=== PATIENT | male | born 1940 | race Caucasian/White ===

== ENCOUNTER 2017-03-05 10:13 | Emergency (ER) | payer MEDICARE, BC ==
--- NOTE | 2017-03-05 10:27 | Emergency Department Record ---
History of Present Illness - General Chief complaint: Bite Insect/other Stated complaint: BUG BITES Time Seen by Provider: 03/05/17 10:24 Source: Patient Mode of Arrival: Ambulatory Limitations: No limitations - History of Present Illness Initial comments: 76 yo female presents to ED with a CC of "bug bites" to the inner thighs bilaterally and right inguinal region. Patient reports redness, swelling, itching, and pain symptoms that began yesterday. Patient denies fevers, chills , nausea, or vomiting symptoms. Patient reports a history of DM. MD complaint: Insect bite/sting Onset/Timin -: Days(s) Location: LLE, RLE Severity: Mild Severity scale (1-10): 2 Consistency: Intermittent Improves with: None Worsens with: None Context: None Associated symptoms: Denies other symptoms Treatments Prior to Arrival: OTC topical medication - Related Data Home Medications Medication Instructions Recorded Confirmed Last Taken Atenolol 100 mg PO DAILY 03/05/17 03/05/17 Unknown Atorvastatin Calcium 40 mg PO DAILY 03/05/17 03/05/17 Unknown Gabapentin [Neurontin] 100 mg PO DAILY 03/05/17 03/05/17 Unknown Hydrochlorothiazide 12.5 mg PO DAILY 03/05/17 03/05/17 Unknown Lisinopril [Zestril] 5 mg PO DAILY 03/05/17 03/05/17 Unknown Metformin HCl 500 mg PO DAILY 03/05/17 03/05/17 Unknown Propranolol HCl 10 mg PO DAILY 03/05/17 03/05/17 Unknown Previous Rx's Medication Instructions Recorded Clindamycin HCl 300 mg PO Q6H #40 capsule 03/05/17 Allergies Allergy/AdvReac Type Severity Reaction Status Date / Time No Known Drug Allergies Allergy Verified 03/05/17 10:24 Travel Screening - Travel/Exposure Within Last 30 Days Have you traveled within the last 30 days?: No Review of Systems Constitutional: Denies: Chills, Fever, Malaise, Night sweats Eyes: Denies: Eye discharge, Eye pain ENT: Denies: Congestion, Ear pain, Epistaxis Respiratory: Denies: Cough, Dyspnea Cardiovascular: Denies: Chest pain, Dyspnea on exertion Endocrine: Denies: Fatigue, Heat or cold intolerance Gastrointestinal: Denies: Constipation, Diarrhea, Nausea, Vomiting Genitourinary: Denies: Testicular pain, Testicular mass Musculoskeletal: Denies: Arthralgia, Back pain Skin: Reports: Change in color, Lesions, Pruritus. Denies: Bruising, Change in hair/nails Neurological: Denies: Confusion, Headache, Seizure Psychiatric: Denies: Anxiety Hematological/Lymphatic: Denies: Anemia, Blood Clots Past Medical History - SOCIAL HISTORY Smoking Status: Never smoker Alcohol Use: None Drug Use: None - RESPIRATORY Hx Respiratory Disorders: No - CARDIOVASCULAR Hx Cardio Disorders: No - NEURO Hx Neuro Disorders: No - GI Hx GI Disorders: No - Hx Genitourinary Disorders: No - ENDOCRINE Hx Endocrine Disorders: Yes Hx Diabetes: Yes - MUSCULOSKELETAL Hx Musculoskeletal Disorders: No - PSYCH Hx Psych Problems: No - HEMATOLOGY/ONCOLOGY Hx Hematology/Oncology Disorders: Yes Hx Cancer: Yes (blood) Family Medical History Any Significant Family History?: No Physical Exam - General General Appearance: Alert, Oriented x3, Cooperative, No acute distress, Other ( mild resting tremor to the UEs bilaterally on examination) Limitations: No limitations - Head Head exam: Atraumatic, Normocephalic, Normal inspection Head exam detail: negative: Abrasion, Contusion, Valdes's sign, General tenderness, Hematoma, Laceration - Eye Eye exam: Normal appearance. negative: Conjunctival injection, Periorbital swelling, Periorbital tenderness - ENT Ear exam: negative: Auricular hematoma, Auricular trauma Nasal Exam: negative: Active bleeding, Discharge, Dried blood, Foreign body Mouth exam: negative: Drooling, Laceration, Muffled voice, Tongue elevation - Neck Neck exam: Normal inspection. negative: Meningismus, Tenderness - Respiratory Respiratory exam: Normal lung sounds bilaterally. negative: Respiratory distress, Rhonchi, Stridor, Wheezes - Cardiovascular Cardiovascular Exam: Regular rate, Normal rhythm, Normal heart sounds - GI/Abdominal GI/Abdominal exam: Soft. negative: Rebound, Rigid, Tenderness - Rectal Rectal exam: Deferred - exam: Deferred - Extremities Extremities exam: Tenderness, Other (Area of erythema induration to the right medial thigh measuring approximately 4 cm in diameter with harm reduction worker surrounding erythema present, no fluctuance present. Smaller area of erythema without induration or fluctuance is present to the right medial thigh.). negative: Calf tenderness, Pedal edema - Back Back exam: Denies: CVA tenderness (R), CVA tenderness (L) - Neurological Neurological exam: Alert, Normal gait, Oriented X3 - Psychiatric Psychiatric exam: Normal affect, Normal mood - Skin Skin exam: Erythema. negative: Abrasion Type of lesion: Other Course Vital Signs 03/05/17 10:17 Temperature 98.6 F Pulse Rate 53 L Respiratory 18 Rate Blood Pressure 127/69 Pulse Ox 96 - Reevaluation(s) Reevaluation #1: 03/05/17 10:31 No clinical evidence for abscess to the medial thigh on examination, and symptoms are c/w cellulitis. Will treat with Clindamycin with instructions for follow-up with Dr. Randall in 3-5 days as directed. Patient and family were counseled to perform warm soaks twice daily and to return for any worsening of the patient's symptoms including; fever, chills, nausea, vomiting, or worsening redness. Patietn and family verbalize understanding of all instructions and appear stable for discharge at this time. Disposition Disposition: Discharge Clinical Impression: Cellulitis of right thigh Disposition: Home, Self-Care Condition: (2) Stable Instructions: Cellulitis (ED) Additional Instructions: Return to ED if your symptoms worsen or if you have any concerns. Clindamycin as directed. Follow-up with your family doctor in 1-3 days as directed. Prescriptions: Clindamycin HCl 300 mg PO Q6H #40 capsule Forms: Patient Portal Access Time of Disposition: 10:27
== END 2017-03-05 10:33 | disposition home or self-care (01) ==
LOC: ER 10:13
DX: L03.115 Cellulitis of right lower limb (principal)
CPT/HCPCS: 99282

== ENCOUNTER 2017-06-15 21:07 | Emergency (ER) | payer MEDICARE, BC ==
--- NOTE | 2017-06-15 21:43 | Emergency Department Record ---
History of Present Illness - General Chief complaint: Edema Stated complaint: RIGHT THUMB INJURY Time Seen by Provider: 06/15/17 21:37 Source: Patient Mode of Arrival: Ambulatory Limitations: No limitations - History of Present Illness Initial comments: 76 yo male presents to ED for symptoms of worsening redness and swelling of the right forearm/thumb. Patient reports that several days ago he was working outdoors when he scratched his forearm on a fence. This morning, patient reported seeing a "blister" to the back of the thumb. Patient was seen by his PCP and started on Keflex this morning, reports that his swelling has become progressively worse since that time including large "blood blisters" to the thumb. Patient denies fevers, chills, or recent illness. Patient also denies anticoagulation use at home. MD Complaint: Extremity swelling Onset/Timin -: Days(s) Location: Right History of Same: No Radiation: Proximal Consistency: Constant Improves with: Nothing Worsens with: Nothing Associated Symptoms: Denies other symptoms - Related Data Allergies Allergy/AdvReac Type Severity Reaction Status Date / Time No Known Drug Allergies Allergy Verified 03/05/17 10:24 Travel Screening - Travel/Exposure Within Last 30 Days Have you traveled within the last 30 days?: No - Travel Symptoms Symptom Screening: None Review of Systems Constitutional: Denies: Chills, Fever, Malaise, Night sweats Eyes: Denies: Eye discharge, Eye pain ENT: Denies: Congestion, Ear pain, Epistaxis Respiratory: Denies: Cough, Dyspnea Cardiovascular: Denies: Chest pain, Dyspnea on exertion Endocrine: Denies: Fatigue, Heat or cold intolerance Gastrointestinal: Denies: Abdominal pain, Nausea, Vomiting Musculoskeletal: Denies: Arthralgia, Back pain, Gout, Joint swelling Skin: Reports: Change in color, Other (blsiters over the dorsum of the thumb). Denies: Bruising, Change in hair/nails Neurological: Denies: Abnormal gait, Confusion, Headache, Seizure Psychiatric: Denies: Anxiety Hematological/Lymphatic: Denies: Anemia, Blood Clots Past Medical History - SOCIAL HISTORY Smoking Status: Never smoker Alcohol Use: None Drug Use: None - RESPIRATORY Hx Respiratory Disorders: No - CARDIOVASCULAR Hx Cardio Disorders: No Hx Hypertension: Yes Comment:: high cholesterol - NEURO Hx Neuro Disorders: No - GI Hx GI Disorders: No - Hx Genitourinary Disorders: No - ENDOCRINE Hx Endocrine Disorders: Yes Hx Diabetes: Yes - MUSCULOSKELETAL Hx Musculoskeletal Disorders: No - PSYCH Hx Psych Problems: No - HEMATOLOGY/ONCOLOGY Hx Hematology/Oncology Disorders: Yes Hx Cancer: Yes (blood) Family Medical History Any Significant Family History?: No Family Hx Comment (NOT TO BE USED IN PLACE OF ITEMS BELOW): denies Physical Exam - General General Appearance: Alert, Oriented x3, Cooperative, Mild distress Limitations: No limitations - Head Head exam: Atraumatic, Normocephalic, Normal inspection Head exam detail: negative: Abrasion, Contusion, Valdes's sign, General tenderness, Hematoma, Laceration - Eye Eye exam: Normal appearance. negative: Conjunctival injection, Periorbital swelling, Periorbital tenderness, Scleral icterus - ENT Ear exam: negative: Auricular hematoma, Auricular trauma Nasal Exam: negative: Active bleeding, Discharge, Dried blood, Foreign body Mouth exam: negative: Drooling, Laceration, Muffled voice, Tongue elevation - Neck Neck exam: Normal inspection. negative: Meningismus, Tenderness - Respiratory Respiratory exam: Normal lung sounds bilaterally. negative: Rales, Respiratory distress, Rhonchi, Stridor - Cardiovascular Cardiovascular Exam: Regular rate, Normal rhythm, Normal heart sounds Peripheral Pulses: 3+: Radial (R) - GI/Abdominal GI/Abdominal exam: Soft. negative: Rebound, Rigid, Tenderness - Rectal Rectal exam: Deferred - exam: Deferred - Extremities Extremities exam: Other (Hemorrhagic blisters to the dorsum of the right thumb with erythema extending to the distal upper arm volarly c/w cellulitis/ lymphangitis. There is no crepitation present, compartments are soft on examination.). negative: Calf tenderness, Pedal edema, Tenderness - Back Back exam: Denies: CVA tenderness (R), CVA tenderness (L) - Neurological Neurological exam: Alert, Normal gait, Oriented X3 - Psychiatric Psychiatric exam: Normal affect, Normal mood - Skin Skin exam: Erythema Distribution of rash: RUE Course Vital Signs 06/15/17 21:21 Temperature 98.2 F Pulse Rate [ 66 Pulse Ox Probe] Respiratory 20 Rate Blood Pressure 126/49 [Left Arm] Pulse Ox 97 - Reevaluation(s) Reevaluation #1: 06/15/17 22:13 Labs reviewed, WBC 425K (baseline 385K), Hgb 10.8/HCT 36.1, Platelets 120. CRP 0.6. Labs are otherwise grossly unremarkable for an acute process. Reevaluation #2: 06/15/17 22:48 Right forearm/Hand: STS of the forearm extending to the hand, severe STS base thumb, ?1.7 mm linear FB overlying the base of the distal phalanx. No soft- tissue gas noted on examination. Clindamycin has completed infusing. Patient initially requested transfer to [facility], spoke with admitting [facility] and hand surgery [facility] awaiting return page from Hand [facility] for consultation. 06/16/17 04:53 Reevaluation #3: 06/15/17 22:55 Case was discussed with Dr. Davidson (Hand surgery), will order Zosyn in addition to Clindamycin for gram-negative coverage. Hospitalist paged for admission. Reevaluation #4: 06/15/17 23:23 Case was discussed with Dr. Mendes, will accept patient for admission. Patient and his significant other were updated on the plan for transfer and agree with the plan as discussed. Medical Decision Making - Lab Data Result diagrams: 06/15/17 21:45 06/15/17 21:45 Disposition Disposition: Transfer Clinical Impression: CLL (chronic lymphocytic leukemia) Cellulitis Qualifiers: Site of cellulitis: extremity Site of cellulitis of extremity: upper extremity Laterality: right Qualified Code(s): L03.113 - Cellulitis of right upper limb Blister of right thumb Qualifiers: Encounter type: initial encounter Qualified Code(s): S60.321A - Blister ( nonthermal) of right thumb, initial encounter Disposition: Acute Care Hospital Transfer Transfer To: [facility] Reason For Transfer: Hand consultation, cellulitis, hemorrhagic blisters Accepting Physician: Cinthya Time Discussed w/Accepting Physician: 23:25 Condition: (2) Stable Forms: Patient Portal Access Time of Disposition: 23:25 Quality - Quality Measures Quality Measures: N/A - Blood Pressure Screening Does Patient Have Any of the Following: No Blood Pressure Classification: Pre-Hypertensive BP Reading Systolic Measurement: 135 Diastolic Measurement: 48 Screening for High Blood Pressure: < Pre-Hypertensive BP, F/U Documented > [ G8950] Pre-Hypertensive Follow-up Interventions: Referral to alternative/primary care provider.
[2017-06-15] MEDS: CLINDAMYCIN 600MG/50ML PREMIX 600 MG/50 ML BAG IVPB ONE (21:49)
[2017-06-15 21:56] LABS: HEMATOCRIT 36.1 % (42.0-52.0); HEMOGLOBIN 10.8 gm/dl (14.0-18.0); MEAN CELL VOLUME 102.6 fl (81-97); MEAN CORPUSCULAR HGB CONC 29.9 g/dl (32-36); MEAN PLATELET VOLUME 10.5 fl (7.4-10.4); PLATELET COUNT 120 K/uL (130-400); RED BLOOD COUNT 3.52 M/uL (4.40-5.70); RED CELL DISTRIBUTION WIDTH 18.4 % (11.5-14.5)
[2017-06-15 21:58] LABS: MEAN CORPUSCULAR HEMOGLOBIN 30.6 pg (27-33); WHITE BLOOD COUNT W/O DIFF 425.8 K/uL (4.2-12.2)
[2017-06-15 22:11] LABS: ALB/GLOB RATIO 1.7 (1.1-1.8); ALBUMIN 4.3 g/dL (4.0-5.0); ALKALINE PHOSPHATASE 93 U/L (40-129); ALT/SGPT 13 U/L (<41); AST/SGOT 22 U/L (10.0-50.0); BLOOD UREA NITROGEN 21 mg/dL (8-23); C-REACTIVE PROTEIN 0.6 mg/L (<5.0); CREATININE 0.9 mg/dL (0.7-1.2); EST GLOMERULAR FILTRATION RATE > 60 mL/min; GLUCOSE,RANDOM 182 mg/dL (74-109); TOTAL PROTEIN 6.9 g/dL (6.6-8.7)
[2017-06-15 22:23] LABS: ERYTHROCYTE SEDIMENTATION RATE 8 mm/hr (0-20)
[2017-06-15] MEDS: PIPERACILLIN SODIUM/TAZOBACTAM 4.5 GM in 0.9 % SODIUM CHLORIDE 100ML 100 ML IVPB ONE (23:15)
== END 2017-06-16 00:01 | disposition short-term general hospital (02) ==
LOC: ER 21:07
DX: S60.321A Blister (nonthermal) of right thumb, initial encounter (principal); L03.113 Cellulitis of right upper limb; C91.10 Chronic lymphocytic leukemia of B-cell type not having achieved remission; E11.9 Type 2 diabetes mellitus without complications; W22.8XXA Striking against or struck by other objects, initial encounter; Y93.H9 Activity, other involving exterior property and land maintenance, building and construction
CPT/HCPCS: 80053; 85027; 85651; 86140; 96365; 96366; 99284; J2543

== ENCOUNTER 2017-07-09 08:23 | Observation (INO) | payer MEDICARE, BC ==
--- NOTE | 2017-07-09 08:45 | Emergency Department Record ---
History of Present Illness - General Chief complaint: Male Urogenital Problem Time Seen by Provider: 07/09/17 08:34 Source: Patient Mode of Arrival: Ambulatory Limitations: No limitations - History of Present Illness Initial comments: The patient is here due to not feeling well for one day. He has been having dysuria and urinary urgency for one day. He also has felt mildly unsteady per his daughter. The patient denies any fever, chills, CP, SOB, cough, or back pain. He does have a hx of CLL and is in treatment for it. MD Complaint: Dysuria, Other Onset/Timin -: Days(s) Improves with: None Worsens with: None - Related Data Allergies Allergy/AdvReac Type Severity Reaction Status Date / Time No Known Drug Allergies Allergy Verified 07/09/17 08:35 Travel Screening - Travel/Exposure Within Last 30 Days Have you traveled within the last 30 days?: No Review of Systems Constitutional: Denies: Chills, Fever Eyes: Denies: Eye discharge ENT: Denies: Congestion Respiratory: Denies: Cough, Dyspnea Cardiovascular: Denies: Chest pain Endocrine: Denies: Fatigue Gastrointestinal: Denies: Abdominal pain Genitourinary: Reports: Dysuria Musculoskeletal: Denies: Arthralgia Past Medical History - SOCIAL HISTORY Smoking Status: Never smoker Alcohol Use: None Drug Use: None - RESPIRATORY Hx Respiratory Disorders: No - CARDIOVASCULAR Hx Cardio Disorders: Yes Hx Hypertension: Yes Comment:: high cholesterol - NEURO Hx Neuro Disorders: No - GI Hx GI Disorders: No - Hx Genitourinary Disorders: No - ENDOCRINE Hx Endocrine Disorders: Yes Hx Diabetes: Yes - MUSCULOSKELETAL Hx Musculoskeletal Disorders: No - PSYCH Hx Psych Problems: No - HEMATOLOGY/ONCOLOGY Hx Hematology/Oncology Disorders: Yes Hx Cancer: Yes (blood leukemia) Family Medical History Any Significant Family History?: No Family Hx Comment (NOT TO BE USED IN PLACE OF ITEMS BELOW): denies Physical Exam - General General Appearance: Alert, Oriented x3, Cooperative, No acute distress - Head Head exam: Atraumatic, Normocephalic, Normal inspection - Eye Eye exam: Normal appearance, PERRL - ENT Throat exam: Normal inspection. negative: Tonsillar erythema, Tonsillar exudate - Neck Neck exam: Normal inspection, Full ROM. negative: Tenderness - Respiratory Respiratory exam: Normal lung sounds bilaterally. negative: Respiratory distress - Cardiovascular Cardiovascular Exam: Regular rate, Normal rhythm, Normal heart sounds - GI/Abdominal GI/Abdominal exam: Soft, Normal bowel sounds. negative: Rebound, Rigid, Tenderness - Extremities Extremities exam: Normal inspection, Full ROM, Normal capillary refill. negative: Tenderness - Neurological Neurological exam: Alert. negative: Motor sensory deficit - Psychiatric Psychiatric exam: negative: Anxious Course Vital Signs 07/09/17 07/09/17 08:30 08:40 Temperature 99.5 F Pulse Rate 80 Respiratory 18 Rate Blood Pressure 127/45 Pulse Ox 92 L 90 L - Reevaluation(s) Reevaluation #1: The patient is doing very well at this time. He denies any CP, SOB, or JESSE. 07/09/17 10:00 Reevaluation #2: The patient is doing well at this time. He is resting comfortably and denies any pain or discomfort. I did explain to him that it appears he has a UTI along with mild CHF. We will start some IV Abx and diuretics and will admit the patient to the hospital. I did talk with Dr. Randall and he does accept the patient to the hospital. 07/09/17 11:39 Medical Decision Making - Data Complexity MDM Data: Labs Ordered and/or Reviewed, X-Ray Ordered and/or Reviewed, EKG Ordered and/or Reviewed - Lab Data Result diagrams: 07/09/17 08:51 07/09/17 08:51 - EKG Data -: EKG Interpreted by Me EKG: No Acute Changes, Normal EKG - Radiology Data Radiology results: Report reviewed (CXR: increased interstial markings.) Disposition Disposition: Admit Clinical Impression: Cystitis CHF (congestive heart failure) Qualifiers: Congestive heart failure type: unspecified congestive heart failure type Congestive heart failure chronicity: unspecified congestive heart failure chronicity Qualified Code(s): I50.9 - Heart failure, unspecified Disposition: Still a Patient at [facility] Decision to Admit: Admit from ER Decision to Admit Date: 07/09/17 Decision to Admit Time: 11:41 Accepting Physician: Tonia Time Discussed w/Accepting Physician: 11:41 Condition: (2) Stable Time of Disposition: 11:41 Quality - Quality Measures Quality Measures: N/A - Blood Pressure Screening View Details: Yes Does Patient Have Any of the Following: No Blood Pressure Classification: Pre-Hypertensive BP Reading Systolic Measurement: 127 Diastolic Measurement: 45 Screening for High Blood Pressure: < Pre-Hypertensive BP, F/U Documented > [ G8950] Pre-Hypertensive Follow-up Interventions: Referral to alternative/primary care provider.
[2017-07-09] MEDS ORDERED: 0.9 % SODIUM CHLORIDE 1,000 ML BAG IV ONE (08:49)
[2017-07-09 08:58] LABS: HEMATOCRIT 33.7 % (42.0-52.0); HEMOGLOBIN 9.4 gm/dl (14.0-18.0); MEAN CORPUSCULAR HGB CONC 27.9 g/dl (32-36); MEAN PLATELET VOLUME 10.7 fl (7.4-10.4); PLATELET COUNT 102 K/uL (130-400); RED BLOOD COUNT 3.24 M/uL (4.40-5.70); RED CELL DISTRIBUTION WIDTH 19.3 % (11.5-14.5)
[2017-07-09 09:11] LABS: WHITE BLOOD COUNT W/O DIFF 414.6 K/uL (4.2-12.2)
[2017-07-09 09:18] LABS: BLOOD UREA NITROGEN 27 mg/dL (8-23); CKMB 1.7 ng/mL (<6.73); CREATINE PHOSPHOKINASE 169 U/L (39-308); CREATININE 1.1 mg/dL (0.7-1.2); EST GLOMERULAR FILTRATION RATE > 60 mL/min; GLUCOSE,RANDOM 163 mg/dL (74-109)
--- NOTE | 2017-07-09 09:57 | RADIOLOGY REPORT ---
EXAM: CHEST, TWO VIEWS HISTORY: CHEST PAIN. TECHNIQUE: Frontal and lateral views of the chest were obtained. Comparison: CT chest from 05/28/16. FINDINGS: The heart size is normal. Atheromatous change thoracic aorta. Osteopenia. Mixed interstitial and air space opacities bilaterally. Findings could reflect pulmonary edema versus pneumonitis. There are small bilateral pleural effusions. No pneumothorax. IMPRESSION: MIXED INTERSTITIAL INTERSPACE OPACITIES BILATERALLY WITH SMALL BILATERAL PLEURAL EFFUSIONS. JOB NUMBER: [id number] [facility]
[2017-07-09] MEDS ORDERED: FUROSEMIDE IV 40MG/4ML VIAL IVP ONE (10:01)
[2017-07-09 11:12] LABS: URINE APPEARANCE SL CLOUDY; URINE BILIRUBIN NEGATIVE (NEGATIVE); URINE BLOOD MODERATE (NEGATIVE); URINE COLOR YELLOW; URINE GLUCOSE (UA) NEGATIVE (NEGATIVE); URINE KETONE NEGATIVE (NEGATIVE); URINE LEUKOCYTE ESTERASE TRACE (NEGATIVE); URINE NITRITE NEGATIVE (NEGATIVE); URINE PROTEIN TRACE (NEGATIVE); URINE UROBILINOGEN 0.2 E.U./dL (0.20 - 1.00)
[2017-07-09] MEDS ORDERED: LEVOFLOXACIN 500MG IVPB 500 MG/100 ML BAG IVPB ONE (11:15)
[2017-07-09 11:20] LABS: URINE BACTERIA NONE SEEN; URINE EPITHELIAL CELLS 0 - 2 (FEW); URINE RBC 0 - 2 (NONE SEEN)
[2017-07-09] MEDS: ACETAMINOPHEN 500 MG TABLET PO PRN (15:10)
[2017-07-09 17:30] LABS: CKMB 1.2 ng/mL (<6.73)
[2017-07-10 01:23] LABS: CKMB 1.5 ng/mL (<6.73)
[2017-07-10] MEDS: ACETAMINOPHEN 500 MG TABLET PO PRN ×2 (02:11→14:36)
[2017-07-10 06:12] LABS: HEMATOCRIT 29.4 % (42.0-52.0); HEMOGLOBIN 8.2 gm/dl (14.0-18.0); MEAN CELL VOLUME 103.9 fl (81-97); MEAN CORPUSCULAR HGB CONC 27.9 g/dl (32-36); MEAN PLATELET VOLUME 11.3 fl (7.4-10.4); PLATELET COUNT 83 K/uL (130-400); RED BLOOD COUNT 2.83 M/uL (4.40-5.70); RED CELL DISTRIBUTION WIDTH 17.2 % (11.5-14.5)
[2017-07-10 06:20] LABS: CREATININE 1.8 mg/dL (0.7-1.2)
[2017-07-10 06:42] LABS: MEAN CORPUSCULAR HEMOGLOBIN 28.9 pg (27-33); WHITE BLOOD COUNT W/O DIFF 316.9 K/uL (4.2-12.2)
[2017-07-10 06:43] LABS: PLATELET ESTIMATE DECREASED (NORMAL); POIKILOCYTOSIS 1+
[2017-07-10 06:44] LABS: ANISOCYTOSIS 1+
[2017-07-10] MEDS ORDERED: METFORMIN 500 MG TABLET PO SCH (08:00)
[2017-07-10] MEDS ORDERED: GABAPENTIN 100 MG CAPSULE PO SCH (10:00)
[2017-07-10] MEDS ORDERED: ATENOLOL 50 MG TABLET PO SCH (10:00)
[2017-07-10] MEDS ORDERED: TAMSULOSIN HCL 0.4 MG CAP.ER.24H PO SCH (10:00)
[2017-07-10] MEDS ORDERED: HYDROCHLOROTHIAZIDE 12.5 MG CAPSULE PO SCH (10:00)
[2017-07-10] MEDS ORDERED: ATORVASTATIN 20 MG TABLET PO SCH (10:00)
[2017-07-10] MEDS ORDERED: FUROSEMIDE IV 40MG/4ML VIAL IVP SCH (10:00)
[2017-07-10] MEDS ORDERED: ENOXAPARIN 30 MG/0.3 ML SYR SQ SCH (10:00)
[2017-07-10] MEDS ORDERED: LEVOFLOXACIN 500 MG TABLET PO ONE (11:02)
[2017-07-10] MEDS: LISINOPRIL 5 MG TABLET PO SCH ×2 (11:09→11:23)
[2017-07-10] MEDS ORDERED: FUROSEMIDE 20 MG TABLET PO ONE (11:19)
[2017-07-10] MEDS ORDERED: LEVOFLOXACIN 500MG IVPB 500 MG/100 ML BAG IVPB SCH (11:30)
--- NOTE | 2017-07-10 11:48 | Discharge Note ---
VTE H&P Assessment - Risk for VTE Risk for VTE: Yes Risk Level: Moderate Risk Assessment Date: 07/10/17 Risk Assessment Time: 09:45 VTE Orders Placed or Will Be Placed: Yes Discharge Medications - Discharge Medications Prescriptions: Furosemide [Lasix] 20 mg PO DAILY #30 tablet Levofloxacin [Levaquin Tab] 500 mg PO DAILY #10 tab Potassium Chloride 10 meq PO DAILY #30 tablet.er Tamsulosin HCl [Flomax] 0.4 mg PO DAILY #30 cap.er.24h Home Medications: Ambulatory Orders Atenolol 100 mg PO DAILY 03/05/17 [Last Taken 07/08/17] Atorvastatin Calcium 40 mg PO DAILY 03/05/17 [Last Taken 07/08/17] Lisinopril [Zestril] 5 mg PO DAILY 03/05/17 [Last Taken 07/08/17] Metformin HCl 500 mg PO QAM 03/05/17 [Last Taken 07/08/17] Furosemide [Lasix] 20 mg PO DAILY #30 tablet 07/10/17 [Last Taken Unknown] Levofloxacin [Levaquin Tab] 500 mg PO DAILY #10 tab 07/10/17 [Last Taken Unknown ] Potassium Chloride 10 meq PO DAILY #30 tablet.er 07/10/17 [Last Taken Unknown] Tamsulosin HCl [Flomax] 0.4 mg PO DAILY #30 cap.er.24h 07/10/17 [Last Taken Unknown] Discharge Note - Date Date of Discharge Note: 07/10/17 Condition: (2) Stable Forms: Patient Portal Access
--- NOTE | 2017-07-10 11:51 | Discharge Note ---
VTE H&P Assessment - Risk for VTE Risk for VTE: Yes Risk Level: Moderate Risk Assessment Date: 07/10/17 Risk Assessment Time: 09:45 VTE Orders Placed or Will Be Placed: Yes Discharge Medications - Discharge Medications Prescriptions: Furosemide [Lasix] 20 mg PO DAILY #30 tablet Levofloxacin [Levaquin Tab] 500 mg PO DAILY #10 tab Potassium Chloride 10 meq PO DAILY #30 tablet.er Tamsulosin HCl [Flomax] 0.4 mg PO DAILY #30 cap.er.24h Home Medications: Ambulatory Orders Atenolol 100 mg PO DAILY 03/05/17 [Last Taken 07/08/17] Atorvastatin Calcium 40 mg PO DAILY 03/05/17 [Last Taken 07/08/17] Lisinopril [Zestril] 5 mg PO DAILY 03/05/17 [Last Taken 07/08/17] Metformin HCl 500 mg PO QAM 03/05/17 [Last Taken 07/08/17] Furosemide [Lasix] 20 mg PO DAILY #30 tablet 07/10/17 [Last Taken Unknown] Levofloxacin [Levaquin Tab] 500 mg PO DAILY #10 tab 07/10/17 [Last Taken Unknown ] Potassium Chloride 10 meq PO DAILY #30 tablet.er 07/10/17 [Last Taken Unknown] Tamsulosin HCl [Flomax] 0.4 mg PO DAILY #30 cap.er.24h 07/10/17 [Last Taken Unknown] Discharge Note - Date Date of Discharge Note: 07/10/17 Condition: (2) Stable Additional Instructions: follow up with Dr. Randall on Wednesday at 10 am use levaquin 500 mg once aday lasix 20 mg once a day Potassium chloride 10 meq once a day flomax 0.4 mg once a day Prescriptions: Furosemide [Lasix] 20 mg PO DAILY #30 tablet Levofloxacin [Levaquin Tab] 500 mg PO DAILY #10 tab Potassium Chloride 10 meq PO DAILY #30 tablet.er Tamsulosin HCl [Flomax] 0.4 mg PO DAILY #30 cap.er.24h Referrals: Leonard Randall D.O. [Primary Care Provider] - Forms: Patient Portal Access
--- NOTE | 2017-07-12 07:11 | History and Physical Report ---
DATE OF ADMISSION: 07/09/2017 CHIEF COMPLAINT: Frequent urination, weakness. HISTORY OF PRESENT ILLNESS: This 76-year-old male presented to the emergency department stating he was urinating frequently which started the day prior to admission. He was weak and having a hard time walking. He was evaluated in the emergency department by Dr. Marshall and admitted with a diagnosis of cystitis and congestive heart failure mild. The patient was given Lasix 40 mg Iv and diuresed nicely. He also was having some difficulty urinating. He was catheterized once in the emergency department and he had about 400 mL of urine in his bladder. The Gonzales was taken out because his history of chronic lymphocytic leukemia might be a source for infection for him, and he was given a trial of trying to urinate by himself. He was admitted to the hospital for further evaluation and care. The patient denies chest pain. He denied a fever, chills, shortness of breath. He denied back pain or cough. He does have a history of CLL and treated by Dr. Preciado. PAST MEDICAL HISTORY: Chronic lymphocytic leukemia, hypertension, diabetes mellitus, benign prostatic hyperplasia. PAST SURGICAL HISTORY: None. MEDICATIONS: 1. Metformin 500 mg once a day. 2. Lisinopril 5 mg daily. 3. Atorvastatin 40 mg daily. 4. Atenolol 100 mg daily. ALLERGIES: No known allergies. FAMILY HISTORY: No significant family history. SOCIAL HISTORY: Never smoked. No alcohol or drug use. REVIEW OF SYSTEMS: HEENT: No cough, cold, or congestion. Cardiovascular: No chest pain, palpitations, or arrhythmia. However, on his chest x-ray, it appeared to have mild congestive heart failure and pneumonitis. Respiratory: Denies a cough, cold, or congestion. Gastrointestinal: He has had diarrhea about 4-5 episodes since being admitted to the hospital in the last 24 hours but he is feeling better. Genitourinary: No dysuria, hematuria, frequency, or burning on urination. Urinating now and he has only residual of 150 mL. Musculoskeletal: He does have joint/bone problems. His energy levels are back to normal. Neurological: No CVA, paralysis, or paresthesias. Endocrine: He has diabetes mellitus. Integument: No rash, ulcers, change in moles, or yellow skin. His hand is doing much better from the cellulitis that he had. PHYSICAL EXAMINATION: VITALS: Height 5 feet 8 inches, weight 174 pounds. On admission, vital signs were temperature 99.5, pulse 80, blood pressure 127/45, respiratory rate 18, pulse ox 92% on room air. He did develop a fever throughout the day up to about 100.9. Discharge vitals 106 was his fever, pulse 76, blood pressure 105/44, respiratory rate 18, pulse ox 96% on room air. However, he is feeling better and at this point I felt he could be treated as an outpatient. HEENT: Pupils are equal, round, and reactive to light and accommodation. Extraocular muscles are intact. Throat is clear. Nose is clear. Tympanic membranes are treviño. NECK: Supple. No jugular venous distention. No hepatojugular reflux. No carotid bruits. Thyroid is smooth. CARDIOVASCULAR: Regular rate and rhythm without murmurs, clicks, rubs, or gallops. RESPIRATORY: Clear to auscultation. Scant rales at the posterior bases. ABDOMEN: Soft, nontender. No hepatosplenomegaly, no masses, no tenderness. Bowel sounds are active. No bruits. EXTREMITIES: Scant edema of the ankles. Pulses were present bilaterally. BREASTS: Normal male breasts. RECTAL: Exam deferred. GENITALIA: Deferred. NEUROLOGIC: Cranial nerves II-XII intact. No gross defects. Sensation normal, strength normal. Deep tendon reflexes equal bilaterally with Babinski negative. MENTAL STATUS: Alert and oriented x3. IMPRESSION: 1. Fever. 2. Diarrhea. 3. Mild congestive heart failure. 4. Pulmonary edema. 5. Possible pneumonia. 6. Urinary tract infection. 7. Benign prostatic hyperplasia. 8. Chronic lymphocytic leukemia, being treated by Dr. Preciado. PLAN: We gave him Lasix IV 40 mg and oral Lasix today 20 mg, potassium 10 mEq a day, Flomax was started at 0.4 mg daily, Levaquin 500 mg daily. MTDD
--- NOTE | 2017-07-12 07:11 | Discharge Summary ---
DATE OF DISCHARGE: 07/10/2017 DISCHARGE DIAGNOSES: 1. Urinary tract infection. 2. Fever. 3. Diarrhea, resolving. 4. Chronic lymphocytic leukemia. 5. Congestive heart failure, mild. 6. Pulmonary edema secondary to congestive heart failure. 7. Pneumonia. ATTENDING PHYSICIAN: Leonard Randall DO REASON FOR HOSPITALIZATION: Frequent urination and weakness. Fever. This 76-year-old male presented to the ER with frequent urinations and weakness and fever. Seen by Dr. Marshall with diagnosis of cystitis and congestive heart failure. Admitted to the hospital for further evaluation. SIGNIFICANT FINDINGS: WBC 414,000, hemoglobin 9.4. White count went down to 316,000, hemoglobin 8.2. Platelet count 83,000 on discharge. Electrolytes on discharge are sodium 138, potassium 3.4, chloride 100, BUN 44, creatinine 1.8. CK was 1.5, normal. All 3 were normal. His troponin I's were in the indeterminates x3. His brain natriuretic peptide was elevated at 7562. It came down to 6114. Urine was WBCs 6-10, no bacteria. The chest x-ray revealed mixed interspace opacities bilaterally with small bilateral pleural effusions. THERAPY PROVIDED: The patient was given IV Levaquin 500 mg, some IV Lasix 40 mg. HOSPITAL COURSE: He was feeling much better and wanted to be discharged. CONDITION ON DISCHARGE: Much improved. DISCHARGE INSTRUCTIONS: Follow up with Dr. Randall in 1 day at 10 a.m. for a reevaluation and we will schedule an outpatient echocardiogram. Continue the Levaquin 500 mg daily, Flomax 0.4 mg daily, Lasix 20 mg daily, and potassium chloride 10 mEq daily. Continue his other home medications of atenolol 100 mg daily, atorvastatin 40 mg daily, lisinopril 5 mg daily, metformin 500 mg daily. Activity as tolerated. A bladder scan was done after he urinated showing a residual of 180 mL. [facility]
== END 2017-07-10 15:02 | disposition home or self-care (01) ==
LOC: ER 08:23 → MEDSURG 12:36 → INTOOBSV 12:36
PROVIDERS: ADMIT Emergency Medicine; ATTEND Emergency Medicine
DX: N39.0 Urinary tract infection, site not specified (principal); B96.20 Unspecified Escherichia coli [E. coli] as the cause of diseases classified elsewhere; R19.7 Diarrhea, unspecified; C91.11 Chronic lymphocytic leukemia of B-cell type in remission; I50.9 Heart failure, unspecified; E11.9 Type 2 diabetes mellitus without complications; Z79.84 Long term (current) use of oral hypoglycemic drugs; N40.0 Benign prostatic hyperplasia without lower urinary tract symptoms
CPT/HCPCS: 99285 ×2; 96365; 96366; 96375; 82550; 82553 ×2; 80048 ×2; 81001; 84484 ×2; 85027 ×2; 83880 ×2; 71020; 94761; 93005 ×2; 93010; G0378 ×2; J1650; J1940; J1956; J7030

== ENCOUNTER 2017-11-04 11:55 | Emergency (ER) | payer MEDICARE, BC ==
--- NOTE | 2017-11-04 12:24 | Emergency Department Record ---
History of Present Illness - General Chief complaint: Extremity Problem Stated complaint: LEFT ARM RASH Time Seen by Provider: 11/04/17 12:18 Source: Patient Mode of Arrival: Ambulatory Limitations: No limitations - History of Present Illness Initial comments: The patient is here due to developing a L arm rash and redness for the last 3 days. He does have a hx of CLL and did have an appointment with Dr. Josh clarke who sent the patient to the ER for IV abx's. The patient denies any pain, fever , or trauma and he has had a bout of cellulitis in the past to his hand. MD Complaint: Other Onset/Timin -: Days(s) Location: Left, Arm Radiation: None Consistency: Constant Improves with: Nothing Worsens with: Nothing Associated Symptoms: Denies other symptoms - Related Data Home Medications Medication Instructions Recorded Confirmed Last Taken Cholecalciferol (Vitamin D3) 50,000 unit PO WEEKLY 11/04/17 11/04/17 Unknown [Vitamin D] Hydrochlorothiazide 12.5 mg PO DAILY 11/04/17 11/04/17 Unknown Propranolol HCl 10 mg PO DAILY 11/04/17 11/04/17 Unknown Previous Rx's Medication Instructions Recorded Tamsulosin HCl [Flomax] 0.4 mg PO DAILY #30 cap.er.24h 07/10/17 Clindamycin HCl [Cleocin HCl] 300 mg PO QID #28 capsule 11/04/17 Allergies Allergy/AdvReac Type Severity Reaction Status Date / Time No Known Drug Allergies Allergy Verified 07/09/17 08:35 Travel Screening - Travel/Exposure Within Last 30 Days Have you traveled within the last 30 days?: No Review of Systems Constitutional: Denies: Chills, Fever, Malaise Eyes: Denies: Eye discharge ENT: Denies: Congestion Respiratory: Denies: Cough, Dyspnea Past Medical History - SOCIAL HISTORY Smoking Status: Never smoker Alcohol Use: None Drug Use: None - RESPIRATORY Hx Respiratory Disorders: No - CARDIOVASCULAR Hx Cardio Disorders: Yes Hx Hypertension: Yes Comment:: high cholesterol - NEURO Hx Neuro Disorders: No - GI Hx GI Disorders: No - Hx Genitourinary Disorders: No - ENDOCRINE Hx Endocrine Disorders: Yes Hx Diabetes: Yes - MUSCULOSKELETAL Hx Musculoskeletal Disorders: No - PSYCH Hx Psych Problems: No - HEMATOLOGY/ONCOLOGY Hx Hematology/Oncology Disorders: Yes Hx Cancer: Yes (blood leukemia) Hx Chemotherapy: Yes (august 2017) Hx Radiation Therapy: No Family Medical History Any Significant Family History?: Yes Family Hx Comment (NOT TO BE USED IN PLACE OF ITEMS BELOW): denies Hx Cancer: Mother, Grandparents Physical Exam - General General Appearance: Alert, Oriented x3, Cooperative, No acute distress - Head Head exam: Atraumatic, Normocephalic, Normal inspection - Eye Eye exam: Normal appearance, PERRL - Neck Neck exam: Normal inspection, Full ROM. negative: Tenderness - Respiratory Respiratory exam: Normal lung sounds bilaterally. negative: Respiratory distress - Cardiovascular Cardiovascular Exam: Regular rate, Normal rhythm, Normal heart sounds - GI/Abdominal GI/Abdominal exam: Soft, Normal bowel sounds. negative: Tenderness - Extremities Extremities exam: negative: Normal inspection (There is mild swelling, erythema , and warmth to the L upper arm from the shoulder to the distal upper arm above the elbow. There is no tenderness present or any abscess.) Course Vital Signs 11/04/17 12:08 Temperature 98.7 F Pulse Rate 54 L Respiratory 18 Rate Blood Pressure 164/64 Pulse Ox 98 - Reevaluation(s) Reevaluation #1: The patient is doing very well at this time. He appears very stable for discharge and will start the Oral Abx's today. He is to return to the ER in the morning for repeat IV Abx's. 11/04/17 14:03 Medical Decision Making - Lab Data Result diagrams: 11/04/17 13:05 11/04/17 13:05 Disposition Disposition: Discharge Clinical Impression: Cellulitis Qualifiers: Site of cellulitis: unspecified site Qualified Code(s): L03.90 - Cellulitis, unspecified Disposition: Home, Self-Care Condition: (2) Stable Instructions: Cellulitis (ED) Additional Instructions: Please take the Clindamycin as directed and use warm compresses to the L arm during the day. Please use Tylenol for pain if needed. Return to the ER at 8am for repeat IV Abx's. Return to the ER sooner for any pain, fever, or increased rash. Prescriptions: Clindamycin HCl [Cleocin HCl] 300 mg PO QID #28 capsule Forms: Patient Portal Access Time of Disposition: 14:03 Quality - Quality Measures Quality Measures: N/A - Blood Pressure Screening View Details: Yes Does Patient Have Any of the Following: Active Dx of HTN Blood Pressure Classification: Hypertensive Reading Systolic Measurement: 164 Diastolic Measurement: 64 Screening for High Blood Pressure: Patient Exclusion, Hx of HTN [G9744]
[2017-11-04] MEDS ORDERED: CEFTRIAXONE SODIUM 1 GM in 0.9 % SODIUM CHLORIDE 100ML 100 ML IVPB ONE (12:41)
[2017-11-04 13:17] LABS: HEMATOCRIT 32.9 % (42.0-52.0); MEAN CELL VOLUME 99.7 fl (81-97); MEAN CORPUSCULAR HEMOGLOBIN 30.3 pg (27-33); MEAN CORPUSCULAR HGB CONC 30.4 g/dl (32-36); MEAN PLATELET VOLUME 9.8 fl (7.4-10.4); PLATELET COUNT 129 K/uL (130-400); RED CELL DISTRIBUTION WIDTH 14.5 % (11.5-14.5)
[2017-11-04 13:20] LABS: WHITE BLOOD COUNT W/O DIFF 103.3 K/uL (4.2-12.2)
[2017-11-04 13:30] LABS: BLOOD UREA NITROGEN 18 mg/dL (8-23); CREATININE 0.8 mg/dL (0.7-1.2); EST GLOMERULAR FILTRATION RATE > 60 mL/min
[2017-11-04 13:31] LABS: HYPOCHROMIA 1+; PLATELET ESTIMATE NORMAL (NORMAL)
[2017-11-04 13:33] LABS: GLUCOSE,RANDOM 95 mg/dL (74-109)
[2017-11-04 13:36] LABS: C-REACTIVE PROTEIN 0.21 mg/dL (<0.5)
== END 2017-11-04 14:10 | disposition home or self-care (01) ==
LOC: ER 11:55
DX: L03.114 Cellulitis of left upper limb (principal); I10 Essential (primary) hypertension; E11.9 Type 2 diabetes mellitus without complications; Z85.6 Personal history of leukemia; Z79.84 Long term (current) use of oral hypoglycemic drugs
CPT/HCPCS: 80048; 85027; 86140; 96374; 99284

== ENCOUNTER 2017-11-05 07:53 | Emergency (ER) | payer MEDICARE, BC ==
[2017-11-05] MEDS ORDERED: CLINDAMYCIN 600MG/50ML PREMIX 600 MG/50 ML BAG IVPB ONE (08:04)
--- NOTE | 2017-11-05 08:11 | Emergency Department Record ---
History of Present Illness - General Chief Complaint: Wound, check Stated Complaint: NEEDS IV ANTIBIOTICS Time Seen by Provider: 11/05/17 08:02 Source: Patient Mode of arrival: Ambulatory Limitations: No limitations - History of Present Illness Initial Comments: The patient is here for recheck of his L arm cellulitis. He was in the ER yesterday for the same thing and did receive one dose of IV Rocephin and discharged on Clindamycin. Today the patient states the L arm looks and feels better. He can tell the swelling is improved. The patient also has developed erythema to his scalp that his daughter who lives with him noticed. The patient denies any itching, scalp pain, or discomfort. He states he did not even notice any problem with his scalp. MD Complaint: Wound re-check Onset/Timin -: Days(s) - Related Data Previous Rx's Medication Instructions Recorded Tamsulosin HCl [Flomax] 0.4 mg PO DAILY #30 cap.er.24h 07/10/17 Clindamycin HCl [Cleocin HCl] 300 mg PO QID #28 capsule 11/04/17 Allergies Allergy/AdvReac Type Severity Reaction Status Date / Time No Known Drug Allergies Allergy Verified 07/09/17 08:35 Review of Systems Constitutional: Denies: Chills, Fever Past Medical History - SOCIAL HISTORY Smoking Status: Never smoker Drug Use: None - RESPIRATORY Hx Respiratory Disorders: No - CARDIOVASCULAR Hx Cardio Disorders: Yes Hx Hypertension: Yes Comment:: high cholesterol - NEURO Hx Neuro Disorders: No - GI Hx GI Disorders: No - Hx Genitourinary Disorders: No - ENDOCRINE Hx Endocrine Disorders: Yes Hx Diabetes: Yes - MUSCULOSKELETAL Hx Musculoskeletal Disorders: No - PSYCH Hx Psych Problems: No - HEMATOLOGY/ONCOLOGY Hx Hematology/Oncology Disorders: Yes Hx Cancer: Yes (blood leukemia) Hx Chemotherapy: Yes (august 2017) Hx Radiation Therapy: No Family Medical History Family Hx Comment (NOT TO BE USED IN PLACE OF ITEMS BELOW): denies Hx Cancer: Mother, Grandparents Physical Exam - General General Appearance: Alert, Oriented x3, Cooperative, No acute distress - Head Head exam: Atraumatic, Normocephalic. negative: Normal inspection (There is very mild nontender erythema to the mid forhead and scalp. It is not swollen or tender or warm.) - Eye Eye exam: Normal appearance, PERRL - Neck Neck exam: Normal inspection, Full ROM. negative: Tenderness - Respiratory Respiratory exam: Normal lung sounds bilaterally. negative: Respiratory distress - Cardiovascular Cardiovascular Exam: Regular rate, Normal rhythm, Normal heart sounds - GI/Abdominal GI/Abdominal exam: Soft, Normal bowel sounds. negative: Tenderness - Extremities Extremities exam: negative: Normal inspection (The L arm erythema and edema are clearly improved. The redness is receding and there is no warmth or tenderness.) Image of Full Body: 1 - Area of redness and slight swelling. Disposition Disposition: Discharge Clinical Impression: Cellulitis Qualifiers: Site of cellulitis: unspecified site Qualified Code(s): L03.90 - Cellulitis, unspecified Disposition: Home, Self-Care Condition: (2) Stable Instructions: Cellulitis (ED) Additional Instructions: Please continue your regular medicines and continue the Clindamycin. Take Benadryl 25 mg TID for 5 days. Please see your PCP for recheck next week and return to the ER for any worsening symptoms. Forms: Patient Portal Access Time of Disposition: 08:52 Quality - Quality Measures Quality Measures: N/A - Blood Pressure Screening View Details: Yes Does Patient Have Any of the Following: No Blood Pressure Classification: Normal BP Reading Systolic Measurement: 117 Diastolic Measurement: 50 Screening for High Blood Pressure: < Normal BP, F/U Not Required > [G8783]
== END 2017-11-05 08:56 | disposition home or self-care (01) ==
LOC: ER 07:53
DX: L03.114 Cellulitis of left upper limb (principal)
CPT/HCPCS: 96365; 99282

== ENCOUNTER 2017-11-08 09:32 | Inpatient (IN) | payer MEDICARE, BC ==
[2017-11-08] MEDS ORDERED: CEFTRIAXONE SODIUM 1 GM in 0.9 % SODIUM CHLORIDE 100ML 100 ML IVPB ONE (09:48)
--- NOTE | 2017-11-08 09:56 | Emergency Department Record ---
History of Present Illness - General Chief Complaint: Recheck - Other Stated Complaint: INFECTION IN ARM Time Seen by Provider: 11/08/17 09:43 Source: Patient Mode of arrival: Ambulatory Limitations: No limitations - History of Present Illness Initial Comments: The patient is here due to a worsening infection to the L arm. He was diagnosed with Cellulitis 4 days ago while at his Oncologists office. The patient was here on the 1st for a dose of IV abx's and then returned on the 2nd for a repeat dose. The L arm infection was improving but now is worsening. He denies any fever, chills, or pain but the arm is more swollen and warm. There is no hx of Cp, SOB, fever, chills, or AP. MD Complaint: Wound re-check Onset/Timin -: Days(s) Initial Visit For: Other Returns Today for: Other Symptoms Since Prior Visit: Worsening redness, Worsening swelling Associated Symptoms: None - Related Data Previous Rx's Medication Instructions Recorded Tamsulosin HCl [Flomax] 0.4 mg PO DAILY #30 cap.er.24h 07/10/17 Clindamycin HCl [Cleocin HCl] 300 mg PO QID #28 capsule 11/04/17 Allergies Allergy/AdvReac Type Severity Reaction Status Date / Time No Known Drug Allergies Allergy Verified 07/09/17 08:35 Travel Screening - Travel/Exposure Within Last 30 Days Have you traveled within the last 30 days?: No Review of Systems Constitutional: Denies: Chills, Fever, Malaise Eyes: Denies: Eye discharge ENT: Denies: Congestion Respiratory: Denies: Cough, Dyspnea Past Medical History - SOCIAL HISTORY Smoking Status: Never smoker Alcohol Use: None Drug Use: None - RESPIRATORY Hx Respiratory Disorders: No - CARDIOVASCULAR Hx Cardio Disorders: Yes Hx Hypertension: Yes Comment:: high cholesterol - NEURO Hx Neuro Disorders: No - GI Hx GI Disorders: No - Hx Genitourinary Disorders: No - ENDOCRINE Hx Endocrine Disorders: Yes Hx Diabetes: Yes - MUSCULOSKELETAL Hx Musculoskeletal Disorders: No - PSYCH Hx Psych Problems: No - HEMATOLOGY/ONCOLOGY Hx Hematology/Oncology Disorders: Yes Hx Cancer: Yes (blood leukemia) Hx Chemotherapy: Yes (august 2017) Hx Radiation Therapy: No Family Medical History Any Significant Family History?: Yes Family Hx Comment (NOT TO BE USED IN PLACE OF ITEMS BELOW): denies Hx Cancer: Mother, Grandparents Physical Exam - General General Appearance: Alert, Cooperative, No acute distress - Head Head exam: Atraumatic, Normocephalic. negative: Normal inspection (There is mild erythema to the scalp but that has been present for some time.) - Eye Eye exam: Normal appearance, PERRL - Neck Neck exam: Normal inspection, Full ROM. negative: Tenderness - Respiratory Respiratory exam: Normal lung sounds bilaterally. negative: Respiratory distress - Cardiovascular Cardiovascular Exam: Regular rate, Normal rhythm, Normal heart sounds - Extremities Extremities exam: Full ROM, Normal capillary refill. negative: Normal inspection (There is erythema and warmth but no tenderness to the L upper arm with erythema spreading to the L distal chest wall which was not present last week. The erythema does seem to be spreading mildly distally also.), Tenderness (There is no tenderness or crepitance to the erythematous area.) - Back Back exam: Reports: Normal inspection - Neurological Neurological exam: Alert, Normal gait, Oriented X3. negative: Abnormal gait, Motor sensory deficit Course Vital Signs 11/08/17 09:36 Temperature 97.8 F Pulse Rate 61 Respiratory 20 Rate Blood Pressure 135/55 Pulse Ox 96 - Reevaluation(s) Reevaluation #1: The patient is doing well. I did discuss the need for hospital admission for IV Abx's and he did agree. We will contact his PCP Dr. Randall for further treatment plans. 11/08/17 11:28 Reevaluation #2: I did discuss the case with Dr. Randall and he did accept the patient for admission. 11/08/17 12:31 Medical Decision Making - Data Complexity MDM Data: Labs Ordered and/or Reviewed, X-Ray Ordered and/or Reviewed - Lab Data Result diagrams: 11/08/17 10:00 11/08/17 10:00 - Radiology Data Radiology results: Report reviewed (CXR: Possible infiltrate RLL L arm doppler: neg for DVT.) Disposition Disposition: Admit Clinical Impression: Cellulitis Qualifiers: Site of cellulitis: unspecified site Qualified Code(s): L03.90 - Cellulitis, unspecified Disposition: Still a Patient at [facility] Decision to Admit: Admit from ER Decision to Admit Date: 11/08/17 Decision to Admit Time: 12:31 Accepting Physician: Tonia Time Discussed w/Accepting Physician: 12:32 Condition: (2) Stable Time of Disposition: 12:32 Quality - Quality Measures Quality Measures: N/A - Blood Pressure Screening View Details: Yes Does Patient Have Any of the Following: Active Dx of HTN Blood Pressure Classification: Pre-Hypertensive BP Reading Systolic Measurement: 133 Diastolic Measurement: 60 Screening for High Blood Pressure: Patient Exclusion, Hx of HTN [G9744]
[2017-11-08 10:11] LABS: HEMATOCRIT 34.9 % (42.0-52.0); HEMOGLOBIN 10.7 gm/dl (14.0-18.0); MEAN CELL VOLUME 98.9 fl (81-97); MEAN CORPUSCULAR HEMOGLOBIN 30.3 pg (27-33); MEAN CORPUSCULAR HGB CONC 30.7 g/dl (32-36); PLATELET COUNT 120 K/uL (130-400); RED BLOOD COUNT 3.53 M/uL (4.40-5.70); RED CELL DISTRIBUTION WIDTH 14.6 % (11.5-14.5)
[2017-11-08 10:18] LABS: WHITE BLOOD COUNT W/O DIFF 82.5 K/uL (4.2-12.2)
[2017-11-08 10:24] LABS: EST GLOMERULAR FILTRATION RATE > 60 mL/min
[2017-11-08 10:27] LABS: GLUCOSE,RANDOM 128 mg/dL (74-109)
[2017-11-08 10:29] LABS: C-REACTIVE PROTEIN 0.51 mg/dL (<0.5)
[2017-11-08 10:30] LABS: BLOOD UREA NITROGEN 21 mg/dL (8-23)
[2017-11-08] MEDS ORDERED: METHYLPREDNISOLONE PF 125MG/VIAL IVP ONE (11:24)
[2017-11-08] MEDS ORDERED: TMP/SMZ 160MG/800MG TAB PO ONE (12:21)
[2017-11-08] MEDS ORDERED: ACETAMINOPHEN 325 MG TAB PO PRN (14:23)
[2017-11-08] MEDS ORDERED: METHYLPREDNISOLONE PF 125MG/VIAL IVP SCH (18:00)
[2017-11-08] MEDS: CEFTRIAXONE SODIUM 1 GM in 0.9 % SODIUM CHLORIDE 100ML 100 ML IVPB SCH (21:39)
[2017-11-08] MEDS: TMP/SMZ 160MG/800MG TAB PO SCH (21:39)
[2017-11-08] MEDS: METHYLPREDNISOLONE PF 125MG/VIAL IVP SCH (21:39)
[2017-11-09] MEDS: METHYLPREDNISOLONE PF 125MG/VIAL IVP SCH ×3 (06:22→21:58)
--- NOTE | 2017-11-09 07:00 | History and Physical Report ---
DATE: 11/08/2017 CHIEF COMPLAINT: Left arm redness, cellulitis of the left arm. Failed outpatient therapy. HISTORY OF PRESENT ILLNESS: Approximately 6-7 days ago there was a red area on the upper part of the left arm. The patient was seen at his oncology office, Dr. Preciado in [place], on 11/04/2017 and advised to go to the emergency department for IV antibiotics. He went to [facility] and was given 1 g of Rocephin and started on oral clindamycin by Dr. Marshall. Recheck the next day improving. Advised to continue the clindamycin and follow up with me today. However, today the arm got much worse, was more swollen. His daughters Amy and Mary Ann were very concerned and his son-in-law Rhea was present at the bedside when I examined the patient. They advised him to come back to the ER. Seen by Dr. Marshall who gave him another 1 g of Rocephin, Bactrim orally double strength on my advice. He is admitted to the hospital for IV antibiotics and further observation and further treatment. The patient was on clindamycin 300 mg 4 times a day. Currently the left arm is red to the shoulder. I shila a line around it. He has some swelling in the tissue in the whole arm. The daughters also mention that his forehead is slightly red and he has some swelling at the right angle of the jaw. He has had this problem before. The patient has a known history of chronic lymphocytic leukemia and his white count is about 82,000; much better than it has been. It was up into the 500,000. He recently had treatment for chronic lymphocytic leukemia through Dr. Preciado. PAST MEDICAL HISTORY: Chronic lymphocytic leukemia, bilateral hearing deficits and uses hearing aids, hypertension, benign prostatic hyperplasia, hypercholesterolemia, essential tremor of the arms, diabetes mellitus type 2, and a vitamin D deficiency. PAST SURGICAL HISTORY: None. ALLERGIES: None. FAMILY HISTORY: Unremarkable. REVIEW OF SYSTEMS: HEENT: No upper respiratory infection symptoms, cough, cold, or congestion. Cardiovascular: No chest pain, palpitations, or arrhythmia. Respiratory: No cough, cold, or congestion. However, in the emergency department he had a chest x-ray which showed some infiltrate in the bases of the lungs. However, he has no cough or clinical suspicion for pneumonia. Gastrointestinal: No nausea, vomiting, diarrhea, black stools, or bloody stools. Genitourinary: No dysuria, hematuria, frequency, or burning on urination. Musculoskeletal: See chief complaint. He has a very red, swollen left arm up to his shoulder. Neurological: No CVA, paralysis, or paresthesias. Endocrine: He has a history of diabetes type 2. No hypothyroidism. Integument: See chief complaint. He has a red, swollen left arm. PHYSICAL EXAMINATION: VITALS: Height 5 feet 8 inches, weight 193 pounds. Temperature 97.7, pulse 72, blood pressure 144/50, respiratory rate 18, pulse ox 95% on room air. In the emergency department I believe they got a stated weight and we have an actual weight on the [facility] floor. HEENT: Pupils are equal, round, and reactive to light and accommodation. Extraocular muscles are intact. Throat is clear. Nose is clear. Tympanic membranes are treviño. There is some redness on the forehead. He has some swelling on the right angle of the jaw in the neck area. NECK: Supple. No jugular venous distention. No hepatojugular reflux. No carotid bruits. Thyroid is smooth. Some swelling on the right side, feels like lymphedema. CARDIOVASCULAR: Regular rate and rhythm without murmurs, clicks, rubs, or gallops. RESPIRATORY: Clear to auscultation and percussion. ABDOMEN: Soft, nontender. No hepatosplenomegaly, no masses, no tenderness. Bowel sounds are active. No bruits. EXTREMITIES: No pitting edema. No cyanosis, no clubbing. Full range of motion. Peripheral pulses are good. The left arm is swollen. Redness up to the shoulder. He has some petechial findings around the edges of the infection/red area, which may be allergic in nature, so Solu-Medrol was started in the emergency department 125 at 60 mg q.8 h. BREASTS: Normal male breasts. RECTAL: Exam deferred. GENITALIA: Deferred. NEUROLOGIC: Cranial nerves II-XII intact. No gross defects. Sensation normal, strength normal. Deep tendon reflexes equal bilaterally with Babinski negative. MENTAL STATUS: Alert and oriented x3. IMPRESSION: 1. Cellulitis of the left arm, failed outpatient therapy. 2. Possible allergic-type reaction but it is unusual just being on the one arm. 3. Chronic lymphocytic leukemia, recent treatment for reactivation through Dr. Moreno and his labs indicate that his white count is good at 82,000. It was up to 500,000 to 600,000. 4. Status post benign prostatic hyperplasia. 5. Hard of hearing. 6. Essential hypertension. 7. Hypercholesterolemia. 8. Type 2 diabetes mellitus. 9. Essential tremor. 10. Vitamin D deficiency. MEDICATIONS: On admission: 1. Atenolol 100 mg daily. 2. Atorvastatin 40 mg daily. 3. Metformin 500 mg 1 daily. 4. Multiple vitamins for his vision 1 capsule by mouth 2 times daily. 5. Propranolol (Inderal) 10 mg 1 daily p.r.n. tremors. 6. Lisinopril 20 mg daily. 7. Flomax 0.4 mg 1 daily. 8. Vitamin D 50,000 units once a week. PLAN: IV Rocephin 1 g q.12 h. Bactrim double strength b.i.d. Solu-Medrol 60 mg q.8 h. and further evaluation. INPATIENT CERTIFICATION: Admit to inpatient care. Based on my medical assessment, after consideration of patient's risk factors, age, comorbidities, and patient's presenting symptoms and acuity, I expect that this patient will remain in the hospital greater than or equal to 2 midnights and that the services needed warrant inpatient care because of cellulitis and immunocompromise with chronic lymphocytic leukemia. Estimated length of stay is 3 days. The patient may reasonably be expected to be discharged or transferred to a hospital within 96 hours after admission to [facility]. Services needed are IV Rocephin, IV Solu-Medrol. I certify that my determination is in accordance with my understanding of Medicare requirements for reasonable and necessary inpatient services. [facility]
--- NOTE | 2017-11-09 07:04 | RADIOLOGY REPORT ---
EXAM: CHEST, TWO VIEWS HISTORY: DIFFICULTY BREATHING. TECHNIQUE: Frontal and lateral views of the chest were obtained. Comparison: Prior chest from 07/13/17. FINDINGS: The heart is enlarged, but stable. Atheromatous change of the thoracic aorta. Osteopenia. Blunting of the costophrenic angles bilaterally consistent with tiny effusions and/or pleural thickening. Patchy opacity in the right lung base which is equivocally worsened from the prior. No pneumothorax. IMPRESSION: 1. CARDIOMEGALY. TINY BIBASILAR EFFUSIONS. 2. PATCHY OPACITY RIGHT LUNG BASE. FOLLOW-UP RECOMMENDED. JOB NUMBER: [id number] MTDD
--- NOTE | 2017-11-09 07:07 | US VENOUS DOPPLER REPORT ---
EXAM: LEFT UPPER EXTREMITY VENOUS DOPPLER ULTRASOUND HISTORY: BLISTERS AND SWELLING. TECHNIQUE: Transverse and longitudinal sonographic images of the left upper extremity deep venous system were obtained. Comparison: None. FINDINGS: No visible areas of clot formation. Normal compression and augmentation. Doppler and spectral analysis with color flow was utilized. Normal waveforms. Note is made of multiple enlarged lymph nodes within the left axilla, the largest measures approximately 3.8 cm. IMPRESSION: NEGATIVE FOR UPPER EXTREMITY DVT. NONSPECIFIC UPPER EXTREMITY ADENOPATHY. JOB NUMBER: [id number] [facility]
[2017-11-09] MEDS: METFORMIN 500 MG TABLET PO SCH (07:38)
[2017-11-09] MEDS: TMP/SMZ 160MG/800MG TAB PO SCH ×2 (09:23→21:56)
[2017-11-09] MEDS: TAMSULOSIN HCL 0.4 MG CAP.ER.24H PO SCH (09:23)
[2017-11-09] MEDS: HYDROCHLOROTHIAZIDE 12.5 MG CAPSULE PO SCH (09:24)
[2017-11-09] MEDS: PROPRANOLOL HCL 10 MG TABLET PO SCH (09:24)
[2017-11-09] MEDS: CEFTRIAXONE SODIUM 1 GM in 0.9 % SODIUM CHLORIDE 100ML 100 ML IVPB SCH ×2 (09:25→21:58)
[2017-11-09] MEDS: LISINOPRIL 20 MG TABLET PO SCH (09:26)
[2017-11-09] MEDS: ATENOLOL 50 MG TABLET PO SCH (09:26)
[2017-11-09] MEDS ORDERED: METHYLPREDNISOLONE PF 125MG/VIAL IVP SCH (10:00)
[2017-11-09] MEDS ORDERED: ATORVASTATIN 20 MG TABLET PO SCH (10:00)
--- NOTE | 2017-11-09 12:41 | Inpatient Certification ---
Inpatient Certification Admit to inpatient care: Based on my medical assessment, after consideration of patient's risk factors (age, co-morbidities and patient presenting symptoms and acuity), I expect that this patient will remain in the hospital greater than or equal to two midnights and that the services needed warrant inpatient care because: Patient Risk Factors: [cellulitis failed outpatient therapy] Estimated length of stay: [3 days] The patient may reasonably be expected to be discharged or transferred to a hospital within 96 hours after admission to [facility]. Services needed: [IV antibiotics rocephin] Post hospital care (if known): [] I certify that my determination is in accordance with my understanding of Medicare requirements for reasonable and necessary inpatient services. 11/09/17 12:40
[2017-11-09] MEDS: ENOXAPARIN 40 MG/0.4 ML SYR SQ SCH (15:03)
[2017-11-10] MEDS: METHYLPREDNISOLONE PF 125MG/VIAL IVP SCH (06:07)
--- NOTE | 2017-11-10 08:26 | Discharge Note ---
VTE H&P Assessment - Risk for VTE Risk for VTE: Yes Risk Level: Moderate Risk Assessment Date: 11/08/17 Risk Assessment Time: 17:45 VTE Orders Placed or Will Be Placed: Yes Discharge Medications - Discharge Medications Prescriptions: Cephalexin [Keflex] 500 mg PO QID #40 cap Sulfamethoxazole/Trimethoprim [Bactrim] 1 each PO BID #20 tab Home Medications: Ambulatory Orders Atenolol 100 mg PO DAILY 03/05/17 [Last Taken 07/08/17] Atorvastatin Calcium 40 mg PO DAILY 03/05/17 [Last Taken 07/08/17] Lisinopril [Zestril] 20 mg PO DAILY 03/05/17 [Last Taken 07/08/17] Metformin HCl 500 mg PO QAM 03/05/17 [Last Taken 07/08/17] Tamsulosin HCl [Flomax] 0.4 mg PO DAILY #30 cap.er.24h 07/10/17 [Last Taken Unknown] Cholecalciferol (Vitamin D3) [Vitamin D3] 50,000 unit PO WEEKLY 11/04/17 [Last Taken Unknown] Hydrochlorothiazide 12.5 mg PO DAILY 11/04/17 [Last Taken Unknown] Propranolol HCl 10 mg PO DAILY 11/04/17 [Last Taken Unknown] Acetaminophen [Tylenol 325Mg] 650 mg PO Q6H PRN tablet 11/10/17 [Last Taken Unknown] Cephalexin [Keflex] 500 mg PO QID #40 cap 11/10/17 [Last Taken Unknown] Sulfamethoxazole/Trimethoprim [Bactrim] 1 each PO BID #20 tab 11/10/17 [Last Taken Unknown] Discharge Note - Date Date of Discharge Note: 11/10/17 Disposition: Home, Self-Care Condition: (2) Stable Additional Instructions: follow up with Dr. Randall on wednesdaynovember 15 call me sooner if arm gets worse Forms: Patient Portal Access
[2017-11-10] MEDS: TMP/SMZ 160MG/800MG TAB PO SCH ×2 (08:35→10:19)
[2017-11-10] MEDS: METFORMIN 500 MG TABLET PO SCH (08:35)
[2017-11-10] MEDS: ATENOLOL 50 MG TABLET PO SCH ×2 (08:35→10:20)
[2017-11-10] MEDS: PROPRANOLOL HCL 10 MG TABLET PO SCH ×2 (08:35→10:19)
[2017-11-10] MEDS: TAMSULOSIN HCL 0.4 MG CAP.ER.24H PO SCH ×2 (08:35→10:19)
[2017-11-10] MEDS: ENOXAPARIN 40 MG/0.4 ML SYR SQ SCH ×2 (08:35→10:20)
[2017-11-10] MEDS: HYDROCHLOROTHIAZIDE 12.5 MG CAPSULE PO SCH ×2 (08:35→10:19)
[2017-11-10] MEDS: LISINOPRIL 20 MG TABLET PO SCH ×2 (08:36→10:20)
[2017-11-10] MEDS: CEFTRIAXONE SODIUM 1 GM in 0.9 % SODIUM CHLORIDE 100ML 100 ML IVPB SCH ×2 (08:46→10:20)
[2017-11-10] MEDS ORDERED: TMP/SMZ 160MG/800MG TAB PO ONE (09:25)
[2017-11-10] MEDS ORDERED: CEPHALEXIN 500 MG CAPSULE PO SCH (09:30)
--- NOTE | 2017-11-11 12:50 | Discharge Summary ---
DATE OF ADMISSION: 11/08/2017 DATE OF DISCHARGE: 11/10/2017 at about 9 a.m. DISCHARGE DIAGNOSES: 1. Cellulitis of the left arm, which originated from a blister on the anterior left shoulder. 2. Chronic lymphocytic leukemia. 3. Status post benign prostatic hyperplasia. 4. [id number]. 5. Essential hypertension. 6. Hypercholesterolemia. 7. Type 2 diabetes mellitus. 8. Essential tremor. 9. Vitamin D deficiency. ATTENDING PHYSICIAN: Leonard Randall DO REASON FOR HOSPITALIZATION: This 77-year-old male developed left arm redness, swelling, and left arm discomfort that started about 6 to 7 days prior to coming in to the hospital. He was seen initially at Dr. Moreno's office, his oncologist, who sent him over to the ER on 11/04/2017. He saw Dr. Marshall in the Emergency Department, given 1 gram of Rocephin, and started on clindamycin orally. Rechecked the next day, he seemed to be doing better; however, on Wednesday he got much worse. He came back in to the Emergency Department and admitted by Dr. Marshall to the hospital for IV antibiotics and further care of his cellulitis that was not responding to the clindamycin. Patient was put back on Rocephin and started on oral Bactrim DS, and IV Solu-Medrol. He also had some swelling in the neck area and on the forehead, which was a little bit red. SIGNIFICANT FINDINGS FROM EXAMINATION: The venous Doppler of the arm was negative for DVT. The chest x-ray showed cardiomegaly, tiny bibasilar effusions, patchy opacities at the right lung base; however, there were no signs of clinical pneumonia. LABORATORY: WBC is 82,500 from his chronic lymphocytic leukemia, hemoglobin is 10.7. His potassium is 3.8, BUN is 21, creatinine is 1. His sugars are running 163. C-reactive protein 0.51, slightly elevated. Calcium was 9.4. THERAPY PROVIDED: He was given IV Rocephin 1 gram every 12 hours, Bactrim DS b.i.d., Solu-Medrol 60 mg every 8 hours. HOSPITAL COURSE: He gradually improved, and on discharge the redness has faded tremendously. His swelling has gone down tremendously, and he is doing much better. DISCHARGE INSTRUCTIONS: Follow up with Dr. Randall on 11/15/2017. Continue Keflex 500 mg 4 times a day, Bactrim DS b.i.d., and his home medications of atenolol 100 mg daily, atorvastatin 40 mg daily, lisinopril 20 mg daily, metformin 500 mg daily, Flomax 0.4 mg daily, vitamin D3 50,000 units weekly, hydrochlorothiazide 12.5 daily, propranolol 10 mg daily, Tylenol p.r.n. MTDD
== END 2017-11-10 10:00 | disposition home or self-care (01) | DRG 603 ==
LOC: ER 09:32 → MEDSURG 13:22
PROVIDERS: ADMIT Emergency Medicine; ATTEND Emergency Medicine
DX: L03.114 Cellulitis of left upper limb (principal); C91.10 Chronic lymphocytic leukemia of B-cell type not having achieved remission; I10 Essential (primary) hypertension; E78.00 Pure hypercholesterolemia, unspecified; E11.9 Type 2 diabetes mellitus without complications; G25.0 Essential tremor; Z79.84 Long term (current) use of oral hypoglycemic drugs; E55.9 Vitamin D deficiency, unspecified; N40.0 Benign prostatic hyperplasia without lower urinary tract symptoms; M79.602 Pain in left arm
CPT/HCPCS: 99285 ×2; 96365; 96375; 85651; 86140; 80048; 85027; 71046; 93971; J3490; 36416; 82948; J1650; J2930

== ENCOUNTER 2018-02-12 20:36 | Emergency (ER) | payer MEDICARE, BC ==
[2018-02-12] MEDS ORDERED: SODIUM CHLORIDE 0.9% 500 ML IV ONE (21:00)
--- NOTE | 2018-02-12 21:00 | Emergency Department Record ---
History of Present Illness - General Chief complaint: Male Urogenital Problem Stated complaint: BLOOD IN URINE Time Seen by Provider: 02/12/18 20:57 Source: Patient Mode of Arrival: Ambulatory Limitations: No limitations - History of Present Illness Initial comments: The patient is here due to hematuria for the last 4 hours. He denies any hx of similar problems, pain, nausea, vomiting or fever. The patient does have mild prostate issues and is on Flomax. Complaint: Other Onset/Timin -: Hour(s) Radiation: None Reports: Denies other symptoms - Related Data Previous Rx's Medication Instructions Recorded Tamsulosin HCl [Flomax] 0.4 mg PO DAILY #30 cap.er.24h 07/10/17 Acetaminophen [Tylenol 325Mg] 650 mg PO Q6H PRN tablet 11/10/17 Ciprofloxacin HCl [Cipro] 1 tab PO Q12H #14 tab 02/12/18 Allergies Allergy/AdvReac Type Severity Reaction Status Date / Time No Known Drug Allergies Allergy Verified 07/09/17 08:35 Travel Screening - Travel/Exposure Within Last 30 Days Have you traveled within the last 30 days?: No - Travel/Exposure Within Last Year Have you traveled outside the [place] in the last year?: No - Additonal Travel Details Have you been exposed to anyone with a communicable illness?: No - Travel Symptoms Symptom Screening: None Review of Systems Constitutional: Denies: Chills, Fever Eyes: Denies: Eye discharge ENT: Denies: Congestion Respiratory: Denies: Cough, Dyspnea Past Medical History - SOCIAL HISTORY Smoking Status: Former smoker Alcohol Use: None Drug Use: None - RESPIRATORY Hx Respiratory Disorders: No - CARDIOVASCULAR Hx Cardio Disorders: Yes Hx Hypertension: Yes Comment:: high cholesterol - NEURO Hx Neuro Disorders: No Comment:: right hand shakes - GI Hx GI Disorders: No - Hx Genitourinary Disorders: No - ENDOCRINE Hx Endocrine Disorders: Yes Hx Diabetes: Yes - MUSCULOSKELETAL Hx Musculoskeletal Disorders: No - PSYCH Hx Psych Problems: No - HEMATOLOGY/ONCOLOGY Hx Hematology/Oncology Disorders: Yes Hx Blood Disorders: Yes Hx Bruising: Yes Hx Cancer: Yes (blood leukemia) Hx Chemotherapy: Yes (august 2017) Hx Radiation Therapy: No Family Medical History Any Significant Family History?: No Family Hx Comment (NOT TO BE USED IN PLACE OF ITEMS BELOW): denies Hx Cancer: Mother, Grandparents Physical Exam - General General Appearance: Alert, Oriented x3, Cooperative, No acute distress - Head Head exam: Atraumatic, Normocephalic, Normal inspection - Eye Eye exam: Normal appearance, PERRL - Neck Neck exam: Normal inspection, Full ROM. negative: Tenderness - Respiratory Respiratory exam: Normal lung sounds bilaterally. negative: Respiratory distress - Cardiovascular Cardiovascular Exam: Regular rate, Normal rhythm, Normal heart sounds - GI/Abdominal GI/Abdominal exam: Soft, Normal bowel sounds. negative: Rebound, Rigid, Tenderness - Extremities Extremities exam: Normal inspection, Full ROM, Normal capillary refill. negative: Tenderness - Neurological Neurological exam: Alert. negative: Motor sensory deficit Course Vital Signs 02/12/18 20:45 Temperature 98.8 F Pulse Rate 57 L Respiratory 20 Rate Blood Pressure 160/61 Pulse Ox 96 - Reevaluation(s) Reevaluation #1: The patient is doing very well. He denies any pain or discomfort. He does feel he is able to void completely and is not retaining any urine. I did explain the CT results and the probable tumor in the bladder. We will place a consult for an appointment with Dr. Siegel for next Wednesday in 3 days from now. We will place the patient on Cipro and will also consult with his PCP in the AM. 02/12/18 22:59 Medical Decision Making - Lab Data Result diagrams: 02/12/18 21:12 02/12/18 21:12 Disposition Disposition: Discharge Clinical Impression: Hematuria Qualifiers: Hematuria type: unspecified type Qualified Code(s): R31.9 - Hematuria, unspecified Disposition: Home, Self-Care Condition: (2) Stable Instructions: Hematuria (ED) Additional Instructions: Please take the Cipro as directed and see Dr. Siegel in [facility] in 3 days. Please also make an appointment with Dr. Randall for this week. PLease return to the ER for any pain, vomiting, fever, or feeling like you are not able to urinate normally. Prescriptions: Ciprofloxacin HCl [Cipro] 1 tab PO Q12H #14 tab Referrals: [facility] [Provider Group] SAMMY SIEGEL M.D. [MEDICAL DOCTOR] - Forms: Patient Portal Access Time of Disposition: 23:02 Quality - Quality Measures Quality Measures: N/A - Blood Pressure Screening View Details: Yes Does Patient Have Any of the Following: No Blood Pressure Classification: Hypertensive Reading Systolic Measurement: 160 Diastolic Measurement: 61 Screening for High Blood Pressure: < First Hypertensive BP, F/U Documented > [ [id number]] First Hypertensive Follow-up Interventions: Referral to alternative/primary care provider.
[2018-02-12 21:23] LABS: HEMOGLOBIN 10.5 gm/dl (14.0-18.0); MEAN CELL VOLUME 99.2 fl (81-97); MEAN CORPUSCULAR HEMOGLOBIN 29.7 pg (27-33); MEAN PLATELET VOLUME 9.9 fl (7.4-10.4); PLATELET COUNT 139 K/uL (130-400); RED BLOOD COUNT 3.53 M/uL (4.40-5.70); RED CELL DISTRIBUTION WIDTH 15.3 % (11.5-14.5)
[2018-02-12 21:34] LABS: WHITE BLOOD COUNT W/O DIFF 191.1 K/uL (4.2-12.2)
[2018-02-12 21:37] LABS: BLOOD UREA NITROGEN 17 mg/dL (8-23); CREATININE 0.8 mg/dL (0.7-1.2); EST GLOMERULAR FILTRATION RATE > 60 mL/min
[2018-02-12 21:40] LABS: GLUCOSE,RANDOM 92 mg/dL (74-109)
[2018-02-12 21:48] LABS: PLATELET ESTIMATE NORMAL (NORMAL)
[2018-02-12 21:49] LABS: ANISOCYTOSIS 1+
[2018-02-12 22:33] LABS: URINE BILIRUBIN NEGATIVE (NEGATIVE); URINE BLOOD LARGE (NEGATIVE); URINE GLUCOSE (UA) NEGATIVE (NEGATIVE); URINE KETONE NEGATIVE (NEGATIVE); URINE LEUKOCYTE ESTERASE NEGATIVE (NEGATIVE); URINE NITRITE NEGATIVE (NEGATIVE)
[2018-02-12 22:35] LABS: URINE PROTEIN 300 mg/dL (NEGATIVE)
[2018-02-12 22:37] LABS: URINE APPEARANCE TURBID; URINE COLOR RED
[2018-02-12 22:38] LABS: URINE BACTERIA FEW; URINE EPITHELIAL CELLS 0 - 2 (FEW); URINE WBC 0 - 2 (0-2/hpf)
[2018-02-12] MEDS ORDERED: CIPROFLOXACIN HCL 500 MG TABLET PO ONE (22:55)
--- NOTE | 2018-02-14 09:48 | CT SCAN REPORT ---
EXAM: CT OF THE ABDOMEN AND PELVIS HISTORY: HEMATURIA. TECHNIQUE: CT of the abdomen and pelvis was performed without oral or IV contrast. This limits evaluation of bowel and solid visceral organs. Comparison: Prior CT from 07/15/17. FINDINGS: Limited evaluation of the lung bases shows a small pericardial effusion and small hiatal hernia. Extensive enlarged pericardial lymph nodes are present. Minor scarring in the left lung base. The osseous structures are grossly intact. Degenerative changes of the lumbar spine. Fatty infiltrative change to the liver. The spleen is enlarged measuring 14 cm. The gallbladder is present. Multiple gallstones. Extensive atheromatous changes. The adrenal glands and pancreas are grossly unremarkable. Calcified splenic artery aneurysm again noted. Extensive adenopathy within the upper abdomen, with the largest node in the gastrohepatic ligament measuring 3.4 x 3.1 cm. There is also extensive retroperitoneal adenopathy, with interval enlargement of some of the nodes. The largest is in the left periaortic region measuring 3.5 x 3.3 cm. Bilateral iliac chain adenopathy as well as large deep pelvic lymph nodes causing mass effect on the urinary bladder. Bilateral inguinal chain adenopathy. Correlate with any lymphoma history. Right yamileth-pelvic lymph node measures 7.8 x 4.3 cm. No free air or free fluid. There is a large amount of stool in the colon. There is a poorly defined hyperdense mass within the posterior aspect of the urinary bladder measuring 3.2 x 2.9 cm. Further assessment with cystoscopy recommended. Enlargement of the prostate. Correlate with PSA levels. Negative for urinary tract calculus or hydronephrosis. IMPRESSION: 1. EXTENSIVE ADENOPATHY THROUGHOUT THE ABDOMEN AND PELVIS, WITH ENLARGED MESENTERIC, RETROPERITONEAL, ILIAC CHAIN, DEEP PELVIC CHAIN, AND INGUINAL CHAIN LYMPH NODES. SOME OF THE LYMPH NODES HAVE ENLARGED FROM THE PRIOR EXAM. 2. HYPERDENSE MASS WITHIN THE URINARY BLADDER. FURTHER ASSESSMENT WITH CYSTOSCOPY RECOMMENDED. 3. ENLARGEMENT OF THE PROSTATE. CORRELATE WITH PSA LEVELS. 4. NOT STATED PREVIOUSLY, SIGMOID DIVERTICULOSIS WITHOUT CT EVIDENCE FOR DIVERTICULITIS. 5. SPLENOMEGALY. FATTY INFILTRATIVE CHANGE TO THE LIVER. 6. SMALL PERICARDIAL EFFUSION. MULTIPLE PERICARDIAL LYMPH NODES ARE NOTED. JOB NUMBER: [id number] MTDD
== END 2018-02-12 23:23 | disposition home or self-care (01) ==
LOC: ER 20:36
DX: R31.0 Gross hematuria (principal); I10 Essential (primary) hypertension; Z87.891 Personal history of nicotine dependence
CPT/HCPCS: 74176; 80048; 81001; 85027; 99284

== ENCOUNTER 2018-04-05 11:55 | Day surgery (SDC) | payer MEDICARE, BC ==
[~2018-04-05 11:55] MED LIST: ACETAMINOPHEN 1,000 MG/100 ML BTL IV ONE; CEFAZOLIN 2 Gram 2 GM/50 ML BAG IVPB ONE
[2018-04-05] MEDS ORDERED: PROPOFOL 10 MG/ML VIAL IV ONE (11:56)
[2018-04-05] MEDS ORDERED: SEVOFLURANE 250 ML INH ONE (11:56)
--- NOTE | 2018-04-06 13:10 | Operative Note ---
DATE OF SURGERY: 04/05/2018 PREOPERATIVE DIAGNOSIS: Bladder tumor and gross hematuria. POSTOPERATIVE DIAGNOSIS: Bladder tumor and gross hematuria. OPERATION: Cystoscopy with fulguration of bleeding. Anesthesia: General. Surgeon: Stanford Hoff MD Ep Specialist: None. Indication: The patient is a 77-year-old male who had an episode of gross hematuria, also has a history of chronic lymphoma and an episode of gross hematuria. A CT scan showed significant lymphadenopathy as well as the possibility of a bladder tumor. As such, he presents for cystoscopic evaluation today. PROCEDURE: Preop informed consent was obtained. Antibiotics were given. Sedation was administered. The patient was brought to the operating room. General anesthetic was given. He was placed in lithotomy position carefully with genitalia prepped and draped sterilely. Cystoscopy revealed an unremarkable anterior urethra. The prostate appeared bilobar and only mildly visually obstructed. The bladder was entered and inspected systematically. No bladder abnormality was seen after a thorough review, and there was minimal bladder trabeculation as well. Both ureteral orifices had normal appearance and positioning. Each was effluxing clear urine. There was no evidence of bladder tumor, no evidence of prostatic tumor as well. There were, however, some small vessels at the 6-o'clock position of the bladder neck and prostate which bled when I entered the bladder. These were then fulgurated to control them quite well. At that point, the bladder was emptied and the scope was removed. Digital rectal exam was performed. There was no rectal bleeding noted. The prostate felt roughly 40-50 mL in size and soft and mobile. There was no evidence of any prostatic mass or pelvic fixation. The procedure was then terminated. The patient was awakened and transferred to recovery in stable condition. PLAN: Today's evaluation failed to show any significant lower urinary tract abnormality. The patient was asked to follow up as needed in the future for any voiding changes. CC: DO BRADLEY Kenney
== END 2018-04-05 15:10 | disposition home or self-care (01) ==
LOC: SUR 11:55
PROVIDERS: ATTEND Urology
DX: R31.0 Gross hematuria (principal); I10 Essential (primary) hypertension; E78.00 Pure hypercholesterolemia, unspecified; E11.9 Type 2 diabetes mellitus without complications; Z85.6 Personal history of leukemia

== ENCOUNTER 2018-04-18 02:26 | Emergency (ER) | payer MEDICARE, BC ==
--- NOTE | 2018-04-18 02:38 | Emergency Department Record ---
History of Present Illness - General Chief complaint: Male Urogenital Problem Stated complaint: BLEEDING FROM PENIS Source: Patient, Family Mode of Arrival: Ambulatory Limitations: No limitations - History of Present Illness Initial comments: 77 yo male presents with blood with urination and difficulty urinating that started at 1am. He had a recent cystoscope on 04/05/[address] Hoff's report states he did not see a tumor but some superficial bleeding vessels were noted at the bladder neck. These were cauterized without return of bleeding until tonight. No fevers. He is only dribbling blood and unable to fully void. No blood thinners. PCP is Dr Randall. The patient has known CLL. MD Complaint: Other Location: Abdomen, Penis Radiation: None Severity: Moderate Severity scale (1-10): 2 Consistency: Constant Improves with: None Worsens with: None Recent surgery Reports: Blood in urine, Urinary retention - Related Data Home Medications Medication Instructions Recorded Confirmed Last Taken Sulfamethoxazole/Trimethoprim 1 each PO BID 04/18/18 04/18/18 Unknown [Sulfamethoxazole-Tmp Ds Tablet] Previous Rx's Medication Instructions Recorded Tamsulosin HCl [Flomax] 0.4 mg PO DAILY #30 cap.er.24h 07/10/17 Acetaminophen [Tylenol 325Mg] 650 mg PO Q6H PRN tablet 11/10/17 Allergies Allergy/AdvReac Type Severity Reaction Status Date / Time clindamycin Allergy RASH Verified 03/29/18 15:12 Review of Systems Constitutional: Denies: Chills, Fever, Malaise, Weakness Eyes: Denies: Eye discharge ENT: Denies: Congestion, Throat pain Respiratory: Denies: Cough Cardiovascular: Denies: Chest pain, Syncope Endocrine: Denies: Fatigue Gastrointestinal: Reports: As per HPI, Abdominal pain. Denies: Diarrhea, Nausea , Vomiting Genitourinary: Reports: As per HPI, Dysuria, Hematuria, Retention. Denies: Frequency Musculoskeletal: Denies: Arthralgia, Back pain, Myalgia Skin: Denies: Bruising, Change in color, Rash Neurological: Denies: Headache, Numbness, Weakness Psychiatric: Denies: Anxiety Hematological/Lymphatic: Denies: Easy bleeding, Easy bruising Past Medical History - SOCIAL HISTORY Smoking Status: Former smoker - RESPIRATORY Hx Respiratory Disorders: No - CARDIOVASCULAR Hx Hypertension: Yes - NEURO Hx Neuro Disorders: No - GI Hx GI Disorders: No - Hx Genitourinary Disorders: No - ENDOCRINE Hx Endocrine Disorders: Yes Hx Diabetes: Yes Comment:: does not check blood sugars - MUSCULOSKELETAL Hx Musculoskeletal Disorders: No Comment:: lt upper arm cellulitis - PSYCH Hx Psych Problems: No - HEMATOLOGY/ONCOLOGY Hx Blood Disorders: Yes Hx Cancer: Yes (blood leukemia) Family Medical History Family Hx Comment (NOT TO BE USED IN PLACE OF ITEMS BELOW): denies Hx Cancer: Mother, Grandparents Physical Exam - General General Appearance: Alert, Oriented x3, Cooperative Limitations: No limitations - Head Head exam: Atraumatic, Normal inspection - Eye Eye exam: Normal appearance, PERRL. negative: Conjunctival injection, Scleral icterus - ENT ENT exam: Normal exam Ear exam: Normal external inspection Nasal Exam: Normal inspection Mouth exam: Normal external inspection - Neck Neck exam: Normal inspection - Respiratory Respiratory exam: Normal lung sounds bilaterally. negative: Respiratory distress - Cardiovascular Cardiovascular Exam: Regular rate, Normal rhythm, Normal heart sounds - GI/Abdominal GI/Abdominal exam: Soft, Tenderness (suprapubic) - Rectal Rectal exam: Deferred - exam: Circumcision, Normal inspection (blood at the meatus) - Extremities Extremities exam: Normal inspection - Back Back exam: Denies: CVA tenderness (R), CVA tenderness (L) - Neurological Neurological exam: Alert, Oriented X3 - Psychiatric Psychiatric exam: Normal affect, Normal mood - Skin Skin exam: Dry, Intact, Normal color, Warm Course - Reevaluation(s) Reevaluation #1: EMR reviewed 04/05/18 Operative report. 04/18/18 02:46 04/18/18 03:07 Quan was placed 400-500cl bloody urine noted. No large clots. His discomfort was largely relieved 04/18/18 03:12 The CBC was reviewed WBC was 291. His WBC count has been elevated since 2010. Plts are in the normal range. 04/18/18 03:32 The CMP was reviewed. CR is 1.5 increased from baseline. UA with N+ and LE positive. No WBC or Bacteria. Discussed with lab, no signs of infection. Likely falsely positive N and LE due to blood. Culture will be sent. The quan continues to drain bloody urine. A [address] for continuos irrigation This was unsuccessful in maintaining continuos drainage 04/18/18 04:24 The patient continues to have bloody clots then stop draining, RN attempting to flush. 04/18/18 04:42 The quan was changed to a 24FR regular quan and is now draining 04/18/18 04:54 Dr Hoff was contacted. Given the efforts and continued bleeding her requests transfer to [facility]. I SW Dr Zapien in the ED. She accepts the patient for transfer The patient was instructed to remain NPO. Medical Decision Making - Lab Data Result diagrams: 04/18/18 02:50 04/18/18 02:50 Disposition Disposition: Transfer Clinical Impression: Hematuria Disposition: Acute Care Hospital Transfer Transfer To: [facility] Reason For Transfer: Hematuria with urine retention Accepting Physician: Curry/Kavya Time Discussed w/Accepting Physician: 04:48 Condition: (1) Good Forms: Patient Portal Access Time of Disposition: 04:48 Quality - Quality Measures Quality Measures: N/A - Blood Pressure Screening Does Patient Have Any of the Following: Active Dx of HTN Blood Pressure Classification: Hypertensive Reading Systolic Measurement: 165 Diastolic Measurement: 76 Screening for High Blood Pressure: Patient Exclusion, Hx of HTN [G9744]
[2018-04-18] MEDS ORDERED: LIDOCAINE UROJECT 10 ML APPL MM ONE (02:42)
[2018-04-18 02:56] LABS: HEMATOCRIT 37.1 % (42.0-52.0); HEMOGLOBIN 10.8 gm/dl (14.0-18.0); MEAN CELL VOLUME 100.8 fl (81-97); MEAN CORPUSCULAR HEMOGLOBIN 29.3 pg (27-33); MEAN CORPUSCULAR HGB CONC 29.1 g/dl (32-36); MEAN PLATELET VOLUME 9.9 fl (7.4-10.4); PLATELET COUNT 161 K/uL (130-400); RED BLOOD COUNT 3.68 M/uL (4.40-5.70); RED CELL DISTRIBUTION WIDTH 15.2 % (11.5-14.5)
[2018-04-18 03:00] LABS: WHITE BLOOD COUNT W/O DIFF 291.9 K/uL (4.2-12.2)
[2018-04-18] MEDS ORDERED: SODIUM CHLORIDE 0.9% 500 ML IV ONE ×2 (03:04→03:38)
[2018-04-18 03:10] LABS: INR 1.1; PARTIAL THROMBOPLASTIN TIME 23.6 SECONDS (24.5-39.1); PROTHROMBIN TIME (PATIENT) 11.3 SECONDS (9.5-12.1)
[2018-04-18 03:11] LABS: BILIRUBIN,TOTAL 0.6 mg/dL (0.2-1.0); CREATININE 1.5 mg/dL (0.7-1.2); TOTAL PROTEIN 7.3 g/dL (6.6-8.7)
[2018-04-18 03:16] LABS: ALB/GLOB RATIO 2.8 (1.1-1.8); ALBUMIN 5.4 g/dL (4.0-5.0)
[2018-04-18 03:23] LABS: URINE APPEARANCE CLOUDY; URINE BILIRUBIN MODERATE (NEGATIVE); URINE COLOR RED; URINE KETONE 40 mg/dL (NEGATIVE)
[2018-04-18 03:24] LABS: URINE BLOOD LARGE (NEGATIVE); URINE LEUKOCYTE ESTERASE MODERATE (NEGATIVE); URINE NITRITE POSITIVE (NEGATIVE); URINE PROTEIN 300 mg/dL (NEGATIVE); URINE UROBILINOGEN >8.0 E.U./dL (0.20 - 1.00)
[2018-04-18 03:25] LABS: URINE BACTERIA NONE SEEN; URINE EPITHELIAL CELLS 0 - 2 (FEW); URINE WBC 0 - 2 (0-2/hpf)
[2018-04-18] MEDS ORDERED: ACETAMINOPHEN 1,000 MG/100 ML BTL IVPB ONE (03:57)
[2018-04-18] MEDS ORDERED: MORPHINE SULFATE 10 MG/ML VIAL IVP ONE (04:21)
== END 2018-04-18 05:28 | disposition short-term general hospital (02) ==
LOC: ER 02:26
DX: R31.0 Gross hematuria (principal); R33.9 Retention of urine, unspecified; I10 Essential (primary) hypertension; E11.9 Type 2 diabetes mellitus without complications; C91.10 Chronic lymphocytic leukemia of B-cell type not having achieved remission; Z79.84 Long term (current) use of oral hypoglycemic drugs; Z87.891 Personal history of nicotine dependence
CPT/HCPCS: 80053; 81001; 85027; 85610; 85730; 96365; 96375; 99285; J2270

== ENCOUNTER 2019-07-19 10:32 | Emergency (ER) | payer MEDICARE, BC ==
--- NOTE | 2019-07-19 10:59 | Emergency Department Record ---
History of Present Illness - General Chief complaint: Edema Stated complaint: RETAINING WATER Time Seen by Provider: 07/19/19 10:51 Source: Patient, RN notes reviewed Mode of Arrival: Ambulatory - History of Present Illness Initial comments: swelling in the right arm 2 weeks ago and bilateral leg edema which started this am and patient said that started one week ago and his right thumb started to swell too. Both legs swollen the right is worse than the left. right eyelid redness amd daughter has been using artificial tears for about 5 days Onset/Timin -: Week(s) Location: Right, Arm, Lower Leg, Thigh History of Same: No Associated Symptoms: Denies other symptoms - Related Data Previous Rx's Medication Instructions Recorded Tamsulosin HCl [Flomax] 0.4 mg PO DAILY #30 cap.er.24h 07/10/17 Acetaminophen [Tylenol 325Mg] 650 mg PO Q6H PRN tablet 11/10/17 Furosemide [Lasix] 20 mg PO DAILY #30 tablet 07/19/19 Potassium Chloride [Klor-Con 10] 10 meq PO DAILY #30 tablet.er 07/19/19 Sulfacetamide Sodium [Bleph-10] 1 - 2 drop AFFEYE QID #10 ml 07/19/19 Allergies Allergy/AdvReac Type Severity Reaction Status Date / Time clindamycin Allergy RASH Verified 07/19/19 10:34 Travel Screening - Travel/Exposure Within Last 30 Days Have you traveled within the last 30 days?: No - Travel/Exposure Within Last Year Have you traveled outside the [place] in the last year?: No - Additonal Travel Details Have you been exposed to anyone with a communicable illness?: No - Travel Symptoms Symptom Screening: None Review of Systems Reviewed: No additional complaints except as noted below Constitutional: Reports: As per HPI. Denies: Chills, Fever, Malaise, Night sweats, Weakness, Weight change Eyes: Reports: As per HPI. Denies: Eye discharge, Eye pain, Photophobia, Vision change ENT: Reports: As per HPI. Denies: Congestion, Dental pain, Ear pain, Epistaxis, Hearing loss, Throat pain Respiratory: Reports: As per HPI. Denies: Cough, Dyspnea, Hemoptysis, Stridor, Wheezes Cardiovascular: Reports: As per HPI. Denies: Arrhythmia, Chest pain, Dyspnea on exertion, Edema, Murmurs, Orthopnea, Palpitations, Paroxysmal nocturnal dyspnea, Rheumatic Fever, Syncope Endocrine: Reports: As per HPI. Denies: Fatigue, Heat or cold intolerance, Polydipsia, Polyuria Gastrointestinal: Reports: As per HPI. Denies: Abdominal pain, Constipation, Diarrhea, Hematemesis, Hematochezia, Melena, Nausea, Vomiting Genitourinary: Reports: As per HPI. Denies: Dysuria, Frequency, Hematuria, Incontinence, Retention, Testicular pain, Testicular mass, Urgency Musculoskeletal: Reports: As per HPI. Denies: Arthralgia, Back pain, Gout, Joint swelling, Myalgia, Neck pain Skin: Reports: As per HPI. Denies: Bruising, Change in color, Change in hair/nails, Lesions, Pruritus, Rash Neurological: Reports: As per HPI. Denies: Abnormal gait, Confusion, Headache, Numbness, Paresthesias, Seizure, Tingling, Tremors, Vertigo, Weakness Psychiatric: Reports: As per HPI. Denies: Anxiety, Auditory hallucinations, Depression, Homicidal thoughts, Suicidal thoughts, Visual hallucinations Hematological/Lymphatic: Reports: As per HPI. Denies: Anemia, Blood Clots, Easy bleeding, Easy bruising, Swollen glands Past Medical History - SOCIAL HISTORY Smoking Status: Former smoker Alcohol Use: Rare Drug Use: None - RESPIRATORY Hx Respiratory Disorders: No - CARDIOVASCULAR Hx Cardio Disorders: Yes Hx Hypertension: Yes - NEURO Hx Neuro Disorders: No Comment:: right hand shakes - GI Hx GI Disorders: No Hx Wt Loss/Wt Gain: Yes (some weight loss over the last year) - Hx Genitourinary Disorders: No Hx Bladder Problem: Yes (hematuria) Hx Prostate Problems: Yes (enlarged on CT scan) - ENDOCRINE Hx Endocrine Disorders: Yes Hx Diabetes: Yes Comment:: does not check blood sugars - MUSCULOSKELETAL Hx Musculoskeletal Disorders: No Comment:: lt upper arm cellulitis - PSYCH Hx Psych Problems: No Hx Anxiety: Yes (mild) Hx Depression: Yes (mild) - HEMATOLOGY/ONCOLOGY Hx Hematology/Oncology Disorders: Yes Hx Blood Disorders: Yes Hx Cancer: Yes (blood leukemia) Family Medical History Any Significant Family History?: No Family Hx Comment (NOT TO BE USED IN PLACE OF ITEMS BELOW): denies Hx Cancer: Mother, Grandparents Physical Exam - General General Appearance: Alert, Oriented x3, Cooperative, No acute distress - Head Head exam: Normal inspection - Eye Eye exam: Normal appearance, PERRL Pupils: Normal accommodation - ENT ENT exam: Normal exam, Mucous membranes moist, Normal external ear exam, Normal orophraynx, TM's normal bilaterally Ear exam: Normal external inspection. negative: External canal tenderness Nasal Exam: Normal inspection. negative: Discharge, Sinus tenderness Mouth exam: Normal external inspection, Tongue normal Teeth exam: Normal inspection. negative: Dental caries Throat exam: Normal inspection. negative: Tonsillar erythema, Tonsillar exudate - Neck Neck exam: Normal inspection, Full ROM. negative: Tenderness - Respiratory Respiratory exam: Normal lung sounds bilaterally. negative: Respiratory distress - Cardiovascular Cardiovascular Exam: Regular rate, Normal rhythm, Normal heart sounds - GI/Abdominal GI/Abdominal exam: Soft, Normal bowel sounds. negative: Tenderness - Rectal Rectal exam: Deferred - exam: Deferred - Extremities Extremities exam: Normal inspection, Full ROM, Normal capillary refill. negative: Tenderness - Back Back exam: Reports: Normal inspection, Full ROM. Denies: Muscle spasm, Rash noted, Tenderness - Neurological Neurological exam: Alert, Normal gait, Oriented X3, Reflexes normal - Psychiatric Psychiatric exam: Normal affect, Normal mood - Skin Skin exam: Dry, Intact, Normal color, Warm Course Vital Signs 07/19/19 10:36 Temperature 98 F Pulse Rate 51 L Respiratory 18 Rate Blood Pressure 145/46 Pulse Ox 99 Medical Decision Making - Lab Data Result diagrams: 07/19/19 11:05 Disposition Clinical Impression: Conjunctiva disorder Edema Qualifiers: Edema type: unspecified Qualified Code(s): R60.9 - Edema, unspecified Disposition: Home, Self-Care Condition: (1) Good Instructions: Leg Edema (ED), Conjunctivitis (ED) Additional Instructions: follow up with Dr Randall tomorrow Prescriptions: Sulfacetamide Sodium [Bleph-10] 1 - 2 drop AFFEYE QID #10 ml Potassium Chloride [Klor-Con 10] 10 meq PO DAILY #30 tablet.er Furosemide [Lasix] 20 mg PO DAILY #30 tablet Forms: Patient Portal Access Time of Disposition: 14:30 Quality - Quality Measures Quality Measures: N/A - Blood Pressure Screening Does Patient Have Any of the Following: No Blood Pressure Classification: Hypertensive Reading Systolic Measurement: 145 Diastolic Measurement: 46 Screening for High Blood Pressure: < Pre-Hypertensive BP, F/U Documented > [G8950] Pre-Hypertensive Follow-up Interventions: Referral to alternative/primary care provider.
[2019-07-19] MEDS: FUROSEMIDE IV 20MG/2ML VIAL IVP ONE (11:15)
[2019-07-19 11:25] LABS: BLOOD UREA NITROGEN 21 mg/dL (8-23); CREATININE 0.8 mg/dL (0.7-1.2); EST GLOMERULAR FILTRATION RATE > 60 mL/min
[2019-07-19 11:28] LABS: GLUCOSE,RANDOM 138 mg/dL (74-109)
--- NOTE | 2019-07-19 13:06 | RADIOLOGY REPORT ---
EXAMINATION: Two View Chest Radiographs EXAM DATE: 07/19/2019 12:34 PM TECHNIQUE: Frontal and lateral views INDICATION: edema COMPARISON: Previous comparison images (November 08, 2017 July 09, 2017) are digitally corrupted. ENCOUNTER: Not applicable FINDINGS: The heart, mediastinum, and pulmonary vasculature are normal. No lung consolidation or pleural effu sions are present. Chronic posterolateral united right rib fracture deformities involving the right s eventh and eighth ribs. Chronic united fracture deformities of the left posterolateral seventh and ei ghth ribs. Mild hyperinflation. IMPRESSION: COPD. Dictated by: Doyle Aleman DO on 07/19/2019 12:58 PM. .
== END 2019-07-19 14:53 | disposition home or self-care (01) ==
LOC: ER 10:32
DX: R60.0 Localized edema (principal); H10.31 Unspecified acute conjunctivitis, right eye; E11.9 Type 2 diabetes mellitus without complications; I10 Essential (primary) hypertension; Z87.891 Personal history of nicotine dependence
CPT/HCPCS: 71046; 80048; 84550; 99284; J1940

== ENCOUNTER 2019-08-12 11:39 | Emergency (ER) | payer MEDICARE, BC ==
--- NOTE | 2019-08-12 12:02 | Emergency Department Record ---
History of Present Illness - General Chief complaint: Extremity Problem Stated complaint: RIGHT LEG PROBLEM/PAIN Time Seen by Provider: 08/12/19 11:57 Source: Patient, Family (daughter) Mode of Arrival: Ambulatory Limitations: No limitations - History of Present Illness Initial comments: From home with daughter for swelling of veins in right anterior lower leg. Onset 2 days ago. Worse after standing, better if elevates. Some discomfort. No upper leg pains. Pt with hx of CLL since 2012 on oral home meds and doing well with last doctor recheck 3 days ago. - Related Data Previous Rx's Medication Instructions Recorded Tamsulosin HCl [Flomax] 0.4 mg PO DAILY #30 cap.er.24h 07/10/17 Acetaminophen [Tylenol 325Mg] 650 mg PO Q6H PRN tablet 11/10/17 Furosemide [Lasix] 20 mg PO DAILY #30 tablet 07/19/19 Potassium Chloride [Klor-Con 10] 10 meq PO DAILY #30 tablet.er 07/19/19 Sulfacetamide Sodium [Bleph-10] 1 - 2 drop AFFEYE QID #10 ml 07/19/19 Allergies Allergy/AdvReac Type Severity Reaction Status Date / Time clindamycin Allergy RASH Verified 08/12/19 11:47 Review of Systems Constitutional: Denies: Chills, Fever Eyes: Denies: Eye discharge ENT: Denies: Congestion Respiratory: Denies: Dyspnea Cardiovascular: Denies: Chest pain Endocrine: Denies: Fatigue Gastrointestinal: Denies: Abdominal pain Musculoskeletal: Denies: Back pain Skin: Denies: Bruising Neurological: Denies: Abnormal gait, Headache Psychiatric: Denies: Anxiety Hematological/Lymphatic: Denies: Blood Clots Past Medical History - SOCIAL HISTORY Smoking Status: Former smoker Drug Use: None - RESPIRATORY Hx Respiratory Disorders: No - CARDIOVASCULAR Hx Cardio Disorders: Yes Hx Hypertension: Yes - NEURO Hx Neuro Disorders: No Comment:: right hand shakes - GI Hx GI Disorders: No Hx Wt Loss/Wt Gain: Yes (some weight loss over the last year) - Hx Genitourinary Disorders: No Hx Bladder Problem: Yes (hematuria) Hx Prostate Problems: Yes (enlarged on CT scan) - ENDOCRINE Hx Endocrine Disorders: Yes Hx Diabetes: Yes Comment:: does not check blood sugars - MUSCULOSKELETAL Hx Musculoskeletal Disorders: No Comment:: lt upper arm cellulitis - PSYCH Hx Psych Problems: No Hx Anxiety: Yes (mild) Hx Depression: Yes (mild) - HEMATOLOGY/ONCOLOGY Hx Hematology/Oncology Disorders: Yes Hx Blood Disorders: Yes Hx Cancer: Yes (blood leukemia) Family Medical History Family Hx Comment (NOT TO BE USED IN PLACE OF ITEMS BELOW): denies Hx Cancer: Mother, Grandparents Physical Exam - General General Appearance: Alert, Oriented x3, Cooperative, No acute distress - Head Head exam: Normal inspection - Eye Eye exam: PERRL - ENT ENT exam: Mucous membranes moist Ear exam: Normal external inspection Nasal Exam: Normal inspection - Neck Neck exam: Normal inspection - Respiratory Respiratory exam: Normal lung sounds bilaterally. negative: Respiratory distr ess - Cardiovascular Cardiovascular Exam: Regular rate, Normal rhythm. negative: Tachycardia - GI/Abdominal GI/Abdominal exam: Soft, Normal bowel sounds. negative: Tenderness - Extremities Extremities exam: Full ROM, Tenderness, Other (right anterior lower leg with soft dilated varicose viens, no evidence of thrombophlebitis. Decrease if elevated. No tenderness to upper thigh. ). negative: Calf tenderness, Joint swelling - Back Back exam: Reports: Normal inspection - Neurological Neurological exam: Alert, Normal gait, Oriented X3 - Psychiatric Psychiatric exam: Normal affect, Normal mood - Skin Skin exam: Normal color Course - Reevaluation(s) Reevaluation #1: 08/12/19 12:13 Seen and examined. Reassured this is not a DVT. Daughter comfortable with plan of elevation and compression socks during the day and off at night. Disposition Disposition: Discharge Clinical Impression: Asymptomatic superficial varicose vein of right lower extremity, CLL (chronic lymphocytic leukemia) Disposition: Home, Self-Care Condition: (1) Good Additional Instructions: Acute Varicose Vein left lower leg. Treatment is elevation of the leg when possible Knee high compression socks during the day, off at night to sleep. See your family doctor in 2-[address] [facility] ED as needed. Forms: Patient Portal Access Time of Disposition: 12:02 Quality - Quality Measures Quality Measures: N/A - Blood Pressure Screening Does Patient Have Any of the Following: No Blood Pressure Classification: Hypertensive Reading Systolic Measurement: 188 Diastolic Measurement: 66 Screening for High Blood Pressure: < Pre-Hypertensive BP, F/U Documented > [G8950] Pre-Hypertensive Follow-up Interventions: Follow-up with rescreen every year.
== END 2019-08-12 12:03 | disposition home or self-care (01) ==
LOC: ER 11:39
DX: I83.891 Varicose veins of right lower extremity with other complications (principal); Z85.6 Personal history of leukemia; I10 Essential (primary) hypertension; Z87.891 Personal history of nicotine dependence; E11.9 Type 2 diabetes mellitus without complications
CPT/HCPCS: 99282

== ENCOUNTER 2019-09-05 07:28 | Emergency (ER) | payer MEDICARE, BC ==
[2019-09-05] MEDS ORDERED: LIDOCAINE 2% JELLY 30 ML TUBE TOP ONE (07:41)
--- NOTE | 2019-09-05 08:20 | Emergency Department Record ---
History of Present Illness - General Chief complaint: Nosebleed/epistaxis Stated complaint: NOSE BLEED Time Seen by Provider: 09/05/19 07:38 Source: Patient Mode of Arrival: Ambulatory Limitations: No limitations - History of Present Illness Initial comments: pt had epistaxis last night and got it under control. he then had a reoccurence this am. he has recently started a new med for cll MD complaint: Epistaxis, Other Onset/Timin -: Hour(s) Location: Nose Severity: Mild Improves with: Pressure Worsens with: None Context-Epistaxis: Other - Related Data Home Medications Medication Instructions Recorded Confirmed Last Taken Ibrutinib [Imbruvica] 420 mg PO DAILY 09/05/19 09/05/19 09/04/19 Propranolol HCl 10 mg PO DAILY 09/05/19 09/05/19 09/05/19 Previous Rx's Medication Instructions Recorded Acetaminophen [Tylenol 325Mg] 650 mg PO Q6H PRN tablet 11/10/17 Furosemide [Lasix] 20 mg PO DAILY #30 tablet 07/19/19 Potassium Chloride [Klor-Con 10] 10 meq PO DAILY #30 tablet.er 07/19/19 Amoxicillin/Potassium Clav 1 each PO BID #14 tablet 09/05/19 [Augmentin 875Mg/125Mg] Allergies Allergy/AdvReac Type Severity Reaction Status Date / Time clindamycin Allergy RASH Verified 08/12/19 11:47 Travel Screening - Travel/Exposure Within Last 30 Days Have you traveled within the last 30 days?: No - Travel/Exposure Within Last Year Have you traveled outside the [place] in the last year?: No - Additonal Travel Details Have you been exposed to anyone with a communicable illness?: No - Travel Symptoms Symptom Screening: Bleeding Review of Systems Reviewed: No additional complaints except as noted below Constitutional: Reports: As per HPI. Denies: Chills, Fever, Malaise, Night sweats, Weakness, Weight change Eyes: Reports: As per HPI. Denies: Eye discharge, Eye pain, Photophobia, Vision change ENT: Reports: As per HPI. Denies: Congestion, Dental pain, Ear pain, Epistaxis, Hearing loss, Throat pain Respiratory: Reports: As per HPI. Denies: Cough, Dyspnea, Hemoptysis, Stridor, Wheezes Cardiovascular: Reports: As per HPI. Denies: Arrhythmia, Chest pain, Dyspnea on exertion, Edema, Murmurs, Orthopnea, Palpitations, Paroxysmal nocturnal dyspnea, Rheumatic Fever, Syncope Endocrine: Reports: As per HPI. Denies: Fatigue, Heat or cold intolerance, Polydipsia, Polyuria Gastrointestinal: Reports: As per HPI. Denies: Abdominal pain, Constipation, Diarrhea, Hematemesis, Hematochezia, Melena, Nausea, Vomiting Genitourinary: Reports: As per HPI. Denies: Dysuria, Frequency, Hematuria, In continence, Retention, Testicular pain, Testicular mass, Urgency Musculoskeletal: Reports: As per HPI. Denies: Arthralgia, Back pain, Gout, Joint swelling, Myalgia, Neck pain Skin: Reports: As per HPI. Denies: Bruising, Change in color, Change in h air/nails, Lesions, Pruritus, Rash Neurological: Reports: As per HPI. Denies: Abnormal gait, Confusion, Headache, Numbness, Paresthesias, Seizure, Tingling, Tremors, Vertigo, Weakness Psychiatric: Reports: As per HPI. Denies: Anxiety, Auditory hallucinations, Depression, Homicidal thoughts, Suicidal thoughts, Visual hallucinations Hematological/Lymphatic: Reports: As per HPI. Denies: Anemia, Blood Clots, Easy bleeding, Easy bruising, Swollen glands Past Medical History - SOCIAL HISTORY Smoking Status: Former smoker Alcohol Use: None Drug Use: None - RESPIRATORY Hx Respiratory Disorders: Yes Hx Pneumonia: Yes - CARDIOVASCULAR Hx Cardio Disorders: Yes Hx Hypertension: Yes - NEURO Hx Neuro Disorders: No Comment:: right hand shakes - GI Hx GI Disorders: No Hx Wt Loss/Wt Gain: Yes (some weight loss over the last year) - Hx Genitourinary Disorders: No Hx Bladder Problem: Yes (hematuria) Hx Prostate Problems: Yes (enlarged on CT scan) - ENDOCRINE Hx Endocrine Disorders: Yes Hx Diabetes: Yes Comment:: does not check blood sugars - MUSCULOSKELETAL Hx Musculoskeletal Disorders: No Comment:: lt upper arm cellulitis - PSYCH Hx Psych Problems: No Hx Anxiety: Yes (mild) Hx Depression: Yes (mild) - HEMATOLOGY/ONCOLOGY Hx Hematology/Oncology Disorders: Yes Hx Blood Disorders: Yes Hx Cancer: Yes (blood leukemia) Family Medical History Any Significant Family History?: No Family Hx Comment (NOT TO BE USED IN PLACE OF ITEMS BELOW): denies Hx Cancer: Mother, Grandparents Physical Exam - General General Appearance: Alert, Oriented x3, Cooperative, Mild distress - Head Head exam: Normal inspection - Eye Eye exam: Normal appearance, PERRL, EOMI Pupils: Normal accommodation - ENT ENT exam: Normal exam, Mucous membranes moist, Normal external ear exam, Normal orophraynx, TM's normal bilaterally Ear exam: Normal external inspection. negative: External canal tenderness Nasal Exam: Active bleeding, Dried blood. negative: Discharge, Sinus tenderness Mouth exam: Normal external inspection, Tongue normal Teeth exam: Normal inspection. negative: Dental caries Throat exam: Normal inspection. negative: Tonsillar erythema, Tonsillar exudate - Neck Neck exam: Normal inspection, Full ROM. negative: Tenderness - Respiratory Respiratory exam: Normal lung sounds bilaterally. negative: Respiratory distress - Cardiovascular Cardiovascular Exam: Normal rhythm, Normal heart sounds, Bradycardia - GI/Abdominal GI/Abdominal exam: Soft, Normal bowel sounds. negative: Tenderness - Rectal Rectal exam: Deferred - exam: Deferred - Extremities Extremities exam: Normal inspection, Full ROM, Normal capillary refill. negative: Tenderness - Back Back exam: Reports: Normal inspection, Full ROM. Denies: Muscle spasm, Rash noted, Tenderness - Neurological Neurological exam: Alert, Normal gait, Oriented X3, Reflexes normal - Psychiatric Psychiatric exam: Normal affect, Normal mood - Skin Skin exam: Dry, Intact, Normal color, Warm Course Vital Signs 09/05/19 07:31 Temperature 97.3 F L Pulse Rate 56 L Respiratory 18 Rate Blood Pressure 192/61 Pulse Ox 97 - Reevaluation(s) Reevaluation #1: 09/05/19 10:01 tle was used. still bleeding. mercel packing placed. Reevaluation #2: 09/05/19 10:01 53% of pts taking imbruvica have hemorrhage. dr soni is paged Reevaluation #3: 09/05/19 10:28 d/w dr mccrary Medical Decision Making - Lab Data Result diagrams: 09/05/19 08:33 Disposition Disposition: Discharge Clinical Impression: Epistaxis Disposition: Home, Self-Care Condition: (1) Good Instructions: Nosebleed (ED) Additional Instructions: follow up with dr soni. have packing removed in 3 days by ENT doctor or family doctor or here. return sooner if worse. do not pick or blow nose. sleep elevated. hold Imbruvica for rest of week. Prescriptions: Amoxicillin/Potassium Clav [Augmentin 875Mg/125Mg] 1 each PO BID #14 tablet Forms: Patient Portal Access Quality - Quality Measures Quality Measures: N/A - Blood Pressure Screening Does Patient Have Any of the Following: Active Dx of HTN Blood Pressure Classification: Hypertensive Reading Systolic Measurement: 192 Diastolic Measurement: 61 Screening for High Blood Pressure: Patient Exclusion, Hx of HTN [G9744]
[2019-09-05 08:38] LABS: HEMATOCRIT 35.4 % (42.0-52.0); HEMOGLOBIN 11.1 gm/dl (14.0-18.0); MEAN CELL VOLUME 84.7 fl (81-97); MEAN CORPUSCULAR HGB CONC 31.4 g/dl (32-36); MEAN PLATELET VOLUME 10.9 fl (7.4-10.4); PLATELET COUNT 175 K/uL (130-400); RED BLOOD COUNT 4.18 M/uL (4.40-5.70); RED CELL DISTRIBUTION WIDTH 16.2 % (11.5-14.5)
[2019-09-05 08:40] LABS: MEAN CORPUSCULAR HEMOGLOBIN 26.5 pg (27-33); WHITE BLOOD COUNT W/O DIFF 44.6 K/uL (4.2-12.2)
== END 2019-09-05 10:41 | disposition home or self-care (01) ==
LOC: ER 07:28
DX: R04.0 Epistaxis (principal); I10 Essential (primary) hypertension; Z87.891 Personal history of nicotine dependence; E11.9 Type 2 diabetes mellitus without complications; Z79.84 Long term (current) use of oral hypoglycemic drugs
CPT/HCPCS: 85027; 99284